=== PATIENT | male | born 1980 | race Two or more races ===

== ENCOUNTER 2018-06-13 04:01 | Emergency (ER) | payer MEDICAID ==
[~2018-06-13] VITALS: Ht 175.3 cm; Wt 170.1 kg
[~2018-06-13 04:01] MED LIST: ALBUAER3 IN; ASPI325T4 PO; CITA20TA3 PO; ERGO1CAP6 PO; HYDR-4683 PO; LOS50T PO; NIAC500T58 PO
[2018-06-13] MEDS ORDERED: ALBUTEROL SULF 2.5 MG/0.5ML(0.5%) NEB SOLN HHN STA (04:13)
[2018-06-13] MEDS ORDERED: IPRATROPIUM BROM 0.5 MG/2.5ML INH SOL NEB ONE (04:15)
[2018-06-13 05:30] VITALS: BP 162/74
== END 2018-06-13 06:14 | disposition home or self-care (01) ==
LOC: EDBD 04:01 → ER 04:12
DX: J06.9 Acute upper respiratory infection, unspecified (principal); J45.909 Unspecified asthma, uncomplicated; I10 Essential (primary) hypertension; K21.9 Gastro-esophageal reflux disease without esophagitis
CPT/HCPCS: 71045; 93005; 94640

== ENCOUNTER 2018-11-26 18:33 | Emergency (ER) | payer MEDICAID ==
[~2018-11-26] VITALS: Ht 177.8 cm; Wt 161.0 kg
[2018-11-26 19:42] VITALS: BP 124/88
[2018-11-26] MEDS ORDERED: SULFAMETHOX W/TRIMETH(800/160MG) DS TAB PO ONE (22:15)
[2018-11-26] MEDS ORDERED: cefTRIAXone SOD 1,000 MG VL IM ONE (22:15)
[2018-11-26] MEDS ORDERED: methylPREDNISolone SOD SUCC 125 MG/2 ML VL IM ONE (22:15)
== END 2018-11-27 01:17 | disposition home or self-care (01) ==
LOC: ER 18:34
DX: B02.9 Zoster without complications (principal); B35.6 Tinea cruris; J06.9 Acute upper respiratory infection, unspecified; J45.909 Unspecified asthma, uncomplicated; K21.9 Gastro-esophageal reflux disease without esophagitis; I10 Essential (primary) hypertension; Z87.891 Personal history of nicotine dependence; Z88.8 Allergy status to other drugs, medicaments and biological substances; Z79.899 Other long term (current) drug therapy
CPT/HCPCS: 96372; 99283; J0696; J2930

== ENCOUNTER 2020-03-28 10:48 | Inpatient (IN) | payer MEDICAID ==
[~2020-03-28] VITALS: Ht 177.8 cm; Wt 188.6 kg
[~2020-03-28 10:48] MED LIST changes: -HYDR-4683 PO; +HYDR-4833 PO
[2020-03-28 11:47] LABS: Basophils # (auto) 0.1 10 ^3/uL (0-0.2); Basophils % (auto) 1.4 % (0.0-2.0); Eosinophils # (auto) 0.4 10 ^3/uL (0-0.8); Eosinophils % (auto) 3.7 % (0.0-7.0); Hematocrit 42.2 % (41.0-53.0); Hemoglobin 13.9 g/dL (13.5-17.5); Mean Corpuscular Hemoglobin 29.2 pg (28.0-32.0); Mean Corpuscular Hgb Conc. 32.9 g/dL (32.0-36.0); Mean Corpuscular Volume 88.9 fL (80.0-100.0); Monocytes # (auto) 0.8 10 ^3/uL (0-1.3); Monocytes % (auto) 7.9 % (0.0-12.0); Neutrophils # (auto) 6.4 10 ^3/uL (1.6-8.6); Nucleated Red Blood Cells % 0.1 %; Platelet Count (auto) 290 10^3/uL (140-450); Red Blood Cells 4.75 10^6/uL (4.5-5.90); Red Cell Distribution Width 15.9 % (11.8-14.3); White Blood Cell 9.7 10^3/uL (4.4-10.8)
[2020-03-28 12:03] LABS: Albumin 2.9 g/dL (3.4-5.0); Calcium 8.5 mg/dL (8.5-10.1); Potassium 3.5 mmol/L (3.5-5.1)
[2020-03-28] MEDS ORDERED: SODIUM CHLORIDE 0.9% 500 ML IV ONE (12:07)
[2020-03-28 12:15] LABS: BUN/Creatinine Ratio 17.5; Bilirubin, Total 0.4 mg/dL (0.2-1.0); Total Protein 7.8 g/dL (6.4-8.2)
[2020-03-28] MEDS ORDERED: CLINDAMYCIN 900MG IV 50 ML IV ONE (12:15)
[2020-03-28] MEDS ORDERED: levoFLOXacin 500MG 100 ML IV ONE (14:00)
[2020-03-28] MEDS ORDERED: OXYCODONE W/ ACETAMINOPHEN 5/325MG TABLET PO PRN (14:00)
[2020-03-28] MEDS ORDERED: TEMAZEPAM 15 MG CAP PO PRN (14:00)
[2020-03-28] MEDS ORDERED: LACTULOSE 20Gm/30ML SOLN PO PRN (14:00)
[2020-03-28] MEDS ORDERED: HYDROcodone-ACET 5/325MG TAB PO PRN (14:00)
[2020-03-28] MEDS ORDERED: MORPHINE SULF INJ 2 MG/ML SYRINGE 1ML IV PRN (14:00)
[2020-03-28] MEDS ORDERED: ALBUTEROL SULF 2.5 MG/0.5ML(0.5%) NEB SOLN NEB PRN (14:00)
[2020-03-28] MEDS ORDERED: DEXTROSE (50%) 50ML SYRG IV PRN (14:00)
[2020-03-28] MEDS ORDERED: NITROGLYCERIN 0.4 MG SL TAB SL PRN (14:00)
[2020-03-28 14:26] VITALS: BP 139/82
[2020-03-28] MEDS: PROMETHAZINE HCL 25 MG/ML 1ML IV PRN ×2 (15:02→20:03)
[2020-03-28] MEDS: HYDROmorphone HCL 2 MG/ML VL IV PRN ×2 (15:02→20:03)
[2020-03-28 16:30] VITALS: BP 144/87
--- NOTE | 2020-03-28 16:30 | NUR ---
PT IN LOW FOWLERS, AWAKE, ALERT, ORIENTEDx4. ABLE TO VERBALIZE NEEDS. DENIES PAIN AT MOMENT. EFFORTLESS BREATHING ON ROOM AIR. WOUNDS TO BLE. BED IN LOWEST POSITION, CALL LIGHT WITHIN REACH. WILL CONTINUE TO MONITOR.
[2020-03-28 16:43] VITALS: BP 144/87
[2020-03-28] MEDS: InsuLIN REG 1unit/0.01ml Soln (100units/ml) SC SCH ×2 (17:00→21:30)
[2020-03-28] MEDS: SODIUM CHLORIDE 0.9% 1,000 ML IV SCH ×2 (17:20→23:56)
[2020-03-28] MEDS: ACCU-CHEK COMFORT CURVE STRIP VI SCH ×2 (17:21→21:30)
--- NOTE | 2020-03-28 17:34 | NUR ---
WOUND CARE NOTE: Wound care in to see patient per wound care request regarding "bilateral lower leg wounds" that are noted present on admission. Patient is 40 y/o male admitted due to Bilateral Foot Pain. Patient is resting in bed in Rm. 294B. Patient is awake, alert and oriented. He reported that he's ambulatory but his BLE hurts to walk. He's self turning and repositioning and his Umang score is 17. Patient is in no stated pain at this time. Noted patient's bilateral lower leg are edematous and erythremic with multi crusted, draining ulceration. Wounds are red, open full thickness with no measurable depth, kiran wound is bright red and edematous, minimal serosanguineous drainage noted, no odor noted. Cleansed wounds with NS, took wound culture specimen and and sent to lab for processing. Patient reported that he has had the edema "off and on for years" He added that wound started as blisters and opened up and drain. Fissured callous also noted on his plantar feet and toes. Photograph of patient's wounds are taken for reference. Cleansed patient's BLE wounds with wound cleanser, patted dry with gauze, applied Thera honey gel,covered with absorbent pad, and secured with Stockinette. Patient tolerated well and denies any other wounds. All wound stats documented at nurse intervention wound assessment part. RECOMMENDATION: Nursing to continue Daily/PRN dressing change to BLE wounds per MD order, Dietary consult for wounds,Podiatry consult, elevate edematous extremity on pillows, continue monitoring by wound care while patient is hospitalized. Addendum: 03/28/20 at 1908 by Lili Castillo RN Amended: Links added.
--- NOTE | 2020-03-28 18:51 | NUR ---
PT ASSESSED FOR PRN MED NEB TX. SPO2 98% ON RA, HR 93. PT DENIES ANY RESPIRATORY DISTRESS. NO TX INDICATED. PT IS AWARE TO HAVE RT PAGED IF TX NEEDED.
[2020-03-28] MEDS: CLINDAMYCIN 600MG IV 50 ML IV SCH (20:02)
[2020-03-28] MEDS: FAMOTIDINE 20 MG TAB PO SCH (21:30)
[2020-03-28 21:51] VITALS: BP 122/77
[2020-03-29] MEDS: PROMETHAZINE HCL 25 MG/ML 1ML IV PRN (00:51)
[2020-03-29] MEDS: HYDROmorphone HCL 2 MG/ML VL IV PRN ×4 (00:51→21:14)
[2020-03-29] MEDS: OXYCODONE W/ ACETAMINOPHEN 5/325MG TABLET PO PRN ×4 (04:15→23:20)
[2020-03-29] MEDS: CLINDAMYCIN 600MG IV 50 ML IV SCH ×3 (04:18→22:00)
[2020-03-29 05:00] VITALS: BP 124/63
[2020-03-29] MEDS: ACCU-CHEK COMFORT CURVE STRIP VI SCH ×4 (07:17→21:59)
[2020-03-29] MEDS: InsuLIN REG 1unit/0.01ml Soln (100units/ml) SC SCH ×4 (07:18→21:59)
[2020-03-29 08:51] VITALS: BP 143/72
--- NOTE | 2020-03-29 09:29 | NUR ---
PT ASSESSED FOR PRN HHN TX. PT IS ON ROOM AIR, SPO2 96%, HR 106, RR 20. NO S/S OF RESPIRATORY DISTRESS. PT AWARE TO HAVE RT PAGED IF SOB OCCURS, OR TX NEEDED. WILL CONTINUE TO MONITOR.
[2020-03-29] MEDS: FAMOTIDINE 20 MG TAB PO SCH ×2 (09:53→22:01)
[2020-03-29] MEDS: levoFLOXacin 500MG 100 ML IV SCH (09:53)
[2020-03-29] MEDS: ENOXAPARIN SOD 40 MG/0.4 ML SYRINGE SC SCH (09:53)
[2020-03-29] MEDS: SODIUM CHLORIDE 0.9% 1,000 ML IV SCH (09:54)
[2020-03-29] MEDS ORDERED: FUROSEMIDE 20 MG/2 ML VIAL IV SCH (11:00)
[2020-03-29] MEDS ORDERED: POTASSIUM CHL 10 Meq TABLET PO SCH (11:00)
--- NOTE | 2020-03-29 11:40 | NUR ---
Consult Est energy needs 5190-5024 kcal (25-30 kcal/kg IBW 74.5kg) Est protein needs 151-186g (2-2.5g/kg IBW 74.5kg d/t morbid obesity) Addendum: 03/29/20 at [address] Amended: Links added.
[2020-03-29 12:52] VITALS: BP 125/84
[2020-03-29] MEDS ORDERED: OPTISON 3ml Vial for INJ IV ONE (15:25)
[2020-03-29 17:00] VITALS: BP 139/86
--- NOTE | 2020-03-29 17:10 | NUR ---
Assessment Patient is a 40-year-old male who is alert and oriented. Prior to admission patient lived home with family and functioned independently. Patient informed me he has a walker for home use and would like to see if he can received a walker with seat. Informed patient I will inform bedside nurse. Per patient he will return to his prior living arrangements and family will transport him home. Advised patient there is a social service consult for home health wound care and walker. Informed patient clinical information will be faxed to [facility] and I will have nurse regarding walker with seat. Informed patient he has a right to participate in all discharge planning. Patient verbalized understanding and agreed to discharge plan. Informed Charge Nurse Joy patient has a walker at home and is requesting a walker with seat. Per Charge Nurse Joy she will update order. Faxed clinical information to [facility], and [facility]. Per Jessica with [facility] PH:[phone] patient has been accepted and service to start within 24-48hrs upon d/c day. [facility] will deliver walker with seat to bed side . Obtain authorization from [facility] for home health [id number] and [id number]. Addendum: 03/29/20 at 1711 by HEMANT VELASQUEZ Amended: Links added.
[2020-03-29] MEDS: FUROSEMIDE 20 MG/2 ML VIAL IV SCH (18:58)
--- NOTE | 2020-03-29 19:14 | NUR ---
Opening Shift Note Assumed care of patient. Patient is awake, alert, and oriented X 4. No S/S of respiratory distress. respirations are regular and non-labored. Patient complaints on pain in both leg 7 out 0f 10 and pain in IV site. IV will be D/C and new IV started. pain will be addressed per Dr's order. Bed in lowest position, brakes locked, call light within reach, bed rail up x 2, said rails padded. POC discussed with the patient. Patient instructed to call for assistance PRN. Will continue to monitor for changes Q1hr and PRN.
[2020-03-29 20:00] VITALS: BP 131/92
--- NOTE | 2020-03-29 21:10 | NUR ---
IV DC/insertion Patient reports pain at IV site. Tissue around insertion site is swollen and warm to touch. IV DC'd with sterile technique, catheter fully intact. Pressure dressing applied to site. Co Band wrapped around the site. Patient tolerated procedure well. New IV access obtained via clean sterile technique by inserting 22 gauge catheter at L. wrist after 2 attempts. IV secured properly. No trauma to site. IV is patent and flushing well. Patient tolerated procedure well.
[2020-03-29 22:00] VITALS: BP 131/92
[2020-03-29] MEDS: ALBUTEROL SULF HFA 90MCG INH 200DOSE IN SCH (22:00)
[2020-03-29] MEDS: POTASSIUM CHL 20 Meq TABLET PO SCH (22:01)
--- NOTE | 2020-03-30 01:35 | NUR ---
Dressing change Dressings change was done on both lower extremities. Old dressings had minimum amount of serosanguineous drainage and were stack to wounds' surfaces. Wounds cleansed with wound cleanser, patted dry. Thera honey gel applied on wounds' beds. 2 wounds on left extremity covered with Optifoam. Three wounds on right lower extremity covered with ABD pads. Secured with stockinettes. Patient tolerated procedure well.
[2020-03-30] MEDS: HYDROmorphone HCL 2 MG/ML VL IV PRN ×4 (02:18→17:41)
[2020-03-30] MEDS: CLINDAMYCIN 600MG IV 50 ML IV SCH ×3 (04:02→16:09)
[2020-03-30 05:00] VITALS: BP 134/101
[2020-03-30] MEDS: FUROSEMIDE 20 MG/2 ML VIAL IV SCH ×3 (05:53→17:44)
[2020-03-30] MEDS: ACCU-CHEK COMFORT CURVE STRIP VI SCH ×3 (06:48→17:31)
[2020-03-30] MEDS: InsuLIN REG 1unit/0.01ml Soln (100units/ml) SC SCH ×3 (06:51→17:31)
[2020-03-30 07:06] LABS: Calcium 8.2 mg/dL (8.5-10.1); Potassium 3.3 mmol/L (3.5-5.1)
[2020-03-30 08:58] VITALS: BP 131/74
[2020-03-30] MEDS ORDERED: ASPirin 325 MG TAB PO SCH (10:00)
[2020-03-30] MEDS ORDERED: CITALOPRAM HYDROBR 20 MG TAB PO SCH (10:00)
[2020-03-30] MEDS ORDERED: LOSARTAN POTASSIUM 25 MG TAB PO SCH (10:00)
[2020-03-30] MEDS: FAMOTIDINE 20 MG TAB PO SCH (10:12)
[2020-03-30] MEDS: ENOXAPARIN SOD 40 MG/0.4 ML SYRINGE SC SCH (10:14)
[2020-03-30] MEDS: POTASSIUM CHL 20 Meq TABLET PO SCH (10:14)
[2020-03-30] MEDS: OXYCODONE W/ ACETAMINOPHEN 5/325MG TABLET PO PRN ×2 (10:27→16:10)
--- NOTE | 2020-03-30 10:28 | NUR ---
MESSAGE LEFT FOR NESSA Regarding patient right leg wound positive for MRSA. Awaiting call back.
[2020-03-30] MEDS: ALBUTEROL SULF HFA 90MCG INH 200DOSE IN SCH (10:38)
[2020-03-30] MEDS: levoFLOXacin 500MG 100 ML IV SCH (11:11)
[2020-03-30] MEDS ORDERED: ARIP1TAB7 PO (11:41)
[2020-03-30] MEDS ORDERED: CHOL20009 PO (11:41)
[2020-03-30] MEDS ORDERED: HYDR2.5L TOP (11:41)
[2020-03-30] MEDS ORDERED: PERCOT PO (11:41)
[2020-03-30] MEDS ORDERED: PRA1C PO (11:41)
[2020-03-30] MEDS ORDERED: METF500S PO (11:41)
[2020-03-30] MEDS ORDERED: HYDR12.56 PO (11:41)
[2020-03-30] MEDS ORDERED: TRAZ-181 PO (11:41)
[2020-03-30 12:35] VITALS: BP 141/71
--- NOTE | 2020-03-30 13:12 | NUR ---
NESSA AT BEDSIDE updated on patient status, Per MD patient can be discharged after he receives his antibiotic scheduled for 1600. Patient verbalized understanding.
[2020-03-30] MEDS ORDERED: FURO1TAB31 PO (13:18)
[2020-03-30] MEDS ORDERED: CLIN300C8 PO (13:18)
[2020-03-30] MEDS ORDERED: PROBCAP9 PO (13:18)
--- NOTE | 2020-03-30 14:54 | NUR ---
CALLED [facility] REGARDING WALKER WITH [facility] rep stated that the order/authorization number was wrong. 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
[2020-03-30 16:24] VITALS: BP 131/77
[2020-03-30 16:44] VITALS: BP 131/77
--- NOTE | 2020-03-30 18:05 | NUR ---
WOUND CARE DONE AND PICTURES TAKEN FOR DISCHARGE WOUND CARE DONE ORDERED.
--- NOTE | 2020-03-30 19:00 | NUR ---
discharge Discharge instructions given as ordered. Encourage to follow up with PMD as instructed. All questions and concerns addressed. Patient verbalized understanding. Medication reconciliation form completed and copy given to patient. IV removed with catheter intact, pressure dressing applied Telemetry unit returned to ICU. Patient taken to vehicle via wheelchair with all personal belongings, accompanied by staff . No distress noted at time of departure.
--- NOTE | 2020-04-01 09:22 | NUR ---
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 I called [facility] and spoke with Kyra, she said code need to be [id number]. I called [facility] and spoke with Antonella, she will adjust the authorization. I called [facility] and made them aware, per Kyra walker will arrive within 2 hours-I relayed this information to nurse Kasper.
== END 2020-03-30 19:00 | disposition home health service (06) | DRG 383 ==
LOC: ER 10:48 → TELE-WESTW 15:36
PROVIDERS: ADMIT Internal Medicine; ATTEND Hospitalist
DX: L03.115 Cellulitis of right lower limb (principal); E11.42 Type 2 diabetes mellitus with diabetic polyneuropathy; E11.65 Type 2 diabetes mellitus with hyperglycemia; L03.116 Cellulitis of left lower limb; E66.01 Morbid (severe) obesity due to excess calories; J45.909 Unspecified asthma, uncomplicated; K21.9 Gastro-esophageal reflux disease without esophagitis; I10 Essential (primary) hypertension; F17.210 Nicotine dependence, cigarettes, uncomplicated; G89.4 Chronic pain syndrome; I87.8 Other specified disorders of veins; F31.9 Bipolar disorder, unspecified; Z83.3 Family history of diabetes mellitus; Z88.8 Allergy status to other drugs, medicaments and biological substances; Z81.8 Family history of other mental and behavioral disorders; Z82.49 Family history of ischemic heart disease and other diseases of the circulatory system; Z68.43 Body mass index [BMI] 50.0-59.9, adult; Z79.899 Other long term (current) drug therapy
CPT/HCPCS: 36415; 80048; 80053; 82962; 83036; 83605; 85025; 85652; 87040; 87077; 87186; 87205; 93306; 93970; 94640; 96365; G0378; J1815; J1956; J3490; Q9956

== ENCOUNTER 2022-02-28 10:54 | Emergency (ER) | payer MEDICAID ==
[~2022-02-28] VITALS: Ht 177.8 cm; Wt 172.4 kg
[~2022-02-28 10:54] MED LIST changes: +ARIP1TAB7 PO; +CHOL20009 PO; +CLIN300C8 PO; +FURO1TAB31 PO; +HYDR2.5L TOP; +METF500S PO; +NIAC-10 PO; -NIAC500T58 PO; +PERCOT PO; +PRA1C PO; +PROBCAP9 PO; +TRAZ-181 PO
[2022-02-28 11:09] VITALS: BP 168/114
[2022-02-28] MEDS ORDERED: IBUPROFEN 800 MG TAB PO ONE ×2 (11:15→11:18)
[2022-02-28] MEDS ORDERED: cefTRIAXone SOD 1,000 MG VL IM ONE (11:15)
[2022-02-28] MEDS ORDERED: cefTRIAXone SOD 1,000 MG VL ONE (11:16)
[2022-02-28] MEDS ORDERED: IBUP800T27 PO (11:25)
== END 2022-02-28 11:45 | disposition home or self-care (01) ==
LOC: ER 10:54
DX: K04.7 Periapical abscess without sinus (principal); J45.909 Unspecified asthma, uncomplicated; K21.9 Gastro-esophageal reflux disease without esophagitis; F12.10 Cannabis abuse, uncomplicated; E11.9 Type 2 diabetes mellitus without complications; F17.210 Nicotine dependence, cigarettes, uncomplicated
CPT/HCPCS: 96372; 99283; J0696

== ENCOUNTER 2023-04-12 07:02 | Inpatient (IN) | payer MEDICAID ==
[~2023-04-12] VITALS: Ht 177.8 cm; Wt 190.1 kg
[~2023-04-12 07:02] MED LIST changes: +CLIN300C70 PO; -CLIN300C8 PO; +IBUP-1456 PO; -METF500S PO; +METF500S3 PO
[2023-04-12 07:57] LABS: Basophils # (auto) 0.1 10 ^3/uL (0-0.2); Basophils % (auto) 1.3 % (0.0-2.0); Eosinophils # (auto) 0.3 10 ^3/uL (0-0.8); Eosinophils % (auto) 3.4 % (0.0-7.0); Hematocrit 40.3 % (41.0-53.0); Lymphocytes # (auto) 1.7 10 ^3/uL (0.4-5.4); Lymphocytes % (auto) 20.4 % (10.0-50.0); Mean Corpuscular Hemoglobin 28.9 pg (28.0-32.0); Mean Corpuscular Hgb Conc. 32.4 g/dL (32.0-36.0); Mean Corpuscular Volume 89.2 fL (80.0-100.0); Monocytes # (auto) 0.7 10 ^3/uL (0-1.3); Monocytes % (auto) 7.8 % (0.0-12.0); Neutrophils # (auto) 5.7 10 ^3/uL (1.6-8.6); Neutrophils % (auto) 67.1 % (37.0-80.0); Nucleated Red Blood Cells % 0.1 %; Red Blood Cells 4.52 10^6/uL (4.5-5.90); Red Cell Distribution Width 14.9 % (11.8-14.3); White Blood Cell 8.5 10^3/uL (4.4-10.8)
[2023-04-12 08:02] LABS: Albumin 2.9 g/dL (3.4-5.0); Calcium 9.2 mg/dL (8.5-10.1); Potassium 3.8 mmol/L (3.5-5.1)
[2023-04-12 08:06] LABS: BUN/Creatinine Ratio 21.9 (10.0-20.0); Bilirubin, Total 0.5 mg/dL (0.2-1.0)
[2023-04-12 08:50] LABS: Urine Bacteria NONE SEEN /hpf (None Seen); Urine Blood Negative /uL (Negative); Urine Specific Gravity 1.016 (1.001-1.035); Urine WBC 13 /hpf (0 - 3)
[2023-04-12] MEDS ORDERED: FUROSEMIDE 40 MG/4 ML VIAL IV ONE (09:00)
[2023-04-12] MEDS ORDERED: DEXTROSE (50%) 50ML SYRG IV PRN (12:45)
[2023-04-12] MEDS ORDERED: HYDROcodone-ACET 5/325MG TAB PO PRN (12:45)
[2023-04-12] MEDS ORDERED: ACETAMINOPHEN 325 MG TAB PO PRN (12:45)
[2023-04-12] MEDS: MORPHINE SULFATE INJ 2 MG/ml SYRG IV PRN ×2 (14:54→20:23)
[2023-04-12] MEDS ORDERED: IOHEXOL 350 MG/ML 100ML IJ ONE (15:41)
[2023-04-12] MEDS: ACCU-CHEK COMFORT CURVE STRIP VI SCH ×2 (17:00→22:00)
[2023-04-12] MEDS: InsuLIN REG 1unit/0.01ml Soln (100units/ml) SC SCH ×2 (17:51→22:00)
[2023-04-12] MEDS: PIPERACILLIN-TAZOB 3.375GM 100 ML IV SCH (18:22)
[2023-04-13] MEDS: MORPHINE SULFATE INJ 2 MG/ml SYRG IV PRN ×2 (01:04→05:23)
[2023-04-13 04:02] VITALS: BP 146/93
[2023-04-13 05:00] VITALS: BP 146/93
[2023-04-13] MEDS: PIPERACILLIN-TAZOB 3.375GM 100 ML IV SCH ×2 (05:21)
[2023-04-13 05:53] VITALS: BP 140/76
[2023-04-13] MEDS: ACCU-CHEK COMFORT CURVE STRIP VI SCH (06:15)
[2023-04-13] MEDS: InsuLIN REG 1unit/0.01ml Soln (100units/ml) SC SCH (06:35)
[2023-04-13] MEDS ORDERED: LOSARTAN POTASSIUM 50 MG TAB PO SCH (10:00)
[2023-04-13] MEDS ORDERED: FUROSEMIDE 40 MG TAB PO SCH (10:00)
[2023-04-13] MEDS ORDERED: ARIPIPRAZOLE 15 MG PO SCH (10:00)
[2023-04-13] MEDS ORDERED: ASPirin-EC 325mg tab PO SCH (10:00)
[2023-04-13] MEDS ORDERED: ASPirin 81 mg TAB PO SCH (10:00)
[2023-04-13] MEDS ORDERED: PANTOPRAZOLE 40 MG TAB PO SCH (10:00)
== END 2023-04-13 08:20 | disposition left against medical advice (07) | DRG 383 ==
LOC: ER 07:02 → OVERFLOW 12:34 → WEST WING 04-13 03:29
PROVIDERS: ADMIT Nurse Practitioner Family; ATTEND Nurse Practitioner Family
DX: L03.116 Cellulitis of left lower limb (principal); E44.0 Moderate protein-calorie malnutrition; L03.311 Cellulitis of abdominal wall; R56.9 Unspecified convulsions; I50.9 Heart failure, unspecified; Z68.44 Body mass index [BMI] 60.0-69.9, adult; I11.0 Hypertensive heart disease with heart failure; L03.115 Cellulitis of right lower limb; E11.9 Type 2 diabetes mellitus without complications; E78.5 Hyperlipidemia, unspecified; E66.01 Morbid (severe) obesity due to excess calories; Z53.29 Procedure and treatment not carried out because of patient's decision for other reasons; K21.9 Gastro-esophageal reflux disease without esophagitis; F41.9 Anxiety disorder, unspecified; G89.29 Other chronic pain; M54.9 Dorsalgia, unspecified; F12.90 Cannabis use, unspecified, uncomplicated; F17.210 Nicotine dependence, cigarettes, uncomplicated; J45.909 Unspecified asthma, uncomplicated; Z71.3 Dietary counseling and surveillance; Z88.8 Allergy status to other drugs, medicaments and biological substances
CPT/HCPCS: 36415; 74177; 76705; 80053; 81001; 82962; 83690; 83880; 85025; 93970; G0378; J1815; J2543

== ENCOUNTER 2023-04-20 03:36 | Emergency (ER) | payer MEDICAID ==
[~2023-04-20] VITALS: Ht 177.8 cm; Wt 190.0 kg
[2023-04-20 04:38] LABS: Basophils # (auto) 0.1 10 ^3/uL (0-0.2); Basophils % (auto) 1.3 % (0.0-2.0); Eosinophils # (auto) 0.3 10 ^3/uL (0-0.8); Eosinophils % (auto) 3.4 % (0.0-7.0); Hematocrit 38.2 % (41.0-53.0); Hemoglobin 12.6 g/dL (13.5-17.5); Lymphocytes # (auto) 1.9 10 ^3/uL (0.4-5.4); Lymphocytes % (auto) 22.2 % (10.0-50.0); Mean Corpuscular Hemoglobin 29.5 pg (28.0-32.0); Mean Corpuscular Volume 89.2 fL (80.0-100.0); Monocytes # (auto) 0.6 10 ^3/uL (0-1.3); Monocytes % (auto) 7.5 % (0.0-12.0); Neutrophils # (auto) 5.6 10 ^3/uL (1.6-8.6); Neutrophils % (auto) 65.6 % (37.0-80.0); Nucleated Red Blood Cells % 0.1 %; Red Blood Cells 4.28 10^6/uL (4.5-5.90); Red Cell Distribution Width 14.9 % (11.8-14.3); White Blood Cell 8.6 10^3/uL (4.4-10.8)
[2023-04-20 04:59] LABS: Albumin 2.8 g/dL (3.4-5.0); Calcium 8.3 mg/dL (8.5-10.1); Potassium 3.9 mmol/L (3.5-5.1)
[2023-04-20 05:03] LABS: Bilirubin, Total 0.4 mg/dL (0.2-1.0); Total Protein 7.7 g/dL (6.4-8.2)
[2023-04-20 07:57] LABS: Urine Bacteria NONE SEEN /hpf (None Seen); Urine Blood Negative /uL (Negative); Urine Mucus FEW (None Seen); Urine Specific Gravity 1.018 (1.001-1.035); Urine WBC <1 /hpf (0 - 3)
[2023-04-20] MEDS ORDERED: PIPERACILLIN-TAZOB 3.375GM 100 ML IV ONE (08:15)
[2023-04-20 08:19] VITALS: BP 151/98
[2023-04-20] MEDS ORDERED: HYDROcodone-ACET 10/325MG TAB PO ONE (08:30)
[2023-04-20] MEDS ORDERED: THIAMINE 100mg/ml INJ (200mg/2ml VIAL) IV ONE (11:45)
[2023-04-20] MEDS ORDERED: SODIUM CHLORIDE 0.9% 1,000 ML IV ONE ×2 (11:45)
[2023-04-20 11:58] LABS: Alanine Aminotransferase 41 U/L (16-61); Albumin 3.1 g/dL (3.4-5.0); Anion Gap 5 (5-15); Blood Urea Nitrogen 17 mg/dL (7-18); Calcium 8.5 mg/dL (8.5-10.1); Carbon Dioxide 25 mmol/L (21-32); Chloride 105 mmol/L (98-107); GFR African American 148 mL/min; GFR Non-African American 122 mL/min; Glucose 248 mg/dL (74-106); Potassium 4.1 mmol/L (3.5-5.1); Sodium 135 mmol/L (136-145)
[2023-04-20 12:01] LABS: Alkaline Phosphatase 92 U/L (45-117); Aspartate Aminotransferase 33 U/L (15-37); Bilirubin, Total 0.5 mg/dL (0.2-1.0); Blood Alcohol < 3.0 mg/dL (<10)
[2023-04-20 12:25] LABS: Alcohol, Urine < 3.0 mg/dL (0-10); Barbiturate Scree,Urine NEGATIVE (NEGATIVE); Benzodiazephine Screen, Urine NEGATIVE (NEGATIVE); Cocaine Screen, Urine NEGATIVE (NEGATIVE)
[2023-04-20 12:36] LABS: Amphetamine Screen, Urine NEGATIVE (NEGATIVE); Cannabinoid Screen, Urine POSITIVE (NEGATIVE); Opiate Scree,Urine NEGATIVE (NEGATIVE); Phencyclidine Screen, Urine NEGATIVE (NEGATIVE)
== END 2023-04-20 09:37 | disposition left against medical advice (07) ==
LOC: ER 03:36
DX: L03.116 Cellulitis of left lower limb (principal); L03.115 Cellulitis of right lower limb; I10 Essential (primary) hypertension; E11.9 Type 2 diabetes mellitus without complications; K21.9 Gastro-esophageal reflux disease without esophagitis; J45.909 Unspecified asthma, uncomplicated; F17.210 Nicotine dependence, cigarettes, uncomplicated; F15.90 Other stimulant use, unspecified, uncomplicated; Z88.8 Allergy status to other drugs, medicaments and biological substances; Z79.1 Long term (current) use of non-steroidal anti-inflammatories (NSAID); Z79.82 Long term (current) use of aspirin; Z79.899 Other long term (current) drug therapy
CPT/HCPCS: 36415; 71045; 80053; 80307; 80320; 81001; 83605; 83880; 84484; 85025; 87040; 93005; 96365; 99285; J2543

== ENCOUNTER 2024-08-24 08:09 | Emergency (ER) | payer MEDICAID ==
[~2024-08-24] VITALS: Ht 177.8 cm; Wt 147.8 kg
[~2024-08-24 08:09] MED LIST changes: -ARIP1TAB7 PO; +ARIP20TA4 PO; -ASPI325T4 PO; +ASPI325T6 PO; +CLIN1CAP70 PO; -CLIN300C70 PO; -HYDR2.5L TOP; +HYDR2.5L4 TOP; -PRA1C PO; +PRAZ1CAP2 PO
[2024-08-24 08:38] VITALS: BP 165/97; PULSE 110; RESP 18; TEMP 98; O2SAT 97
--- NOTE | 2024-08-24 08:38 | ED.PDOC ---
History of Present Illness(SKN HPI Comments A 44 YEAR OLD MALE PRESENTS TO THE ED WITH COMPLAINT OF RASH TO ABDOMEN AND BILATERAL LEGS. PATIENT REPORTS THAT FOR THE PAST 2-3 DAYS, A RASH HAS BEEN WORSENING TO THE UNDERFOLD OF HIS ABDOMEN WITH REDNESS, SWELLING, AND PAIN WITH PALPATION. PATIENT RELAYS THAT HE HAS BEEN DEALING WITH A SIMILAR RASH TO HIS BILATERAL LEGS WITH REDNESS AND SWELLING FOR YEARS. PATIENT STATES HE HAS HISTORY OF DM AND HAS BEEN MANAGING IT WITH INSULIN. PATIENT DENIES FEVER, CHILLS, NUMBNESS, WEAKNESS, ABDOMINAL PAIN, NAUSEA, VOMITING, HEADACHE, OR OTHER COMPLAINTS. NO OTHER SYMPTOMS OR MODIFYING FACTORS AT THIS TIME. Chief Complaint: Rash Time Seen by MD: 08:15 Primary Care Provider: SISI History of Present Illness: Nurses Notes, Medications, Allergies Allergies: Coded Allergies: Gabapentin (Verified Allergy, Unknown, 03/28/20) Pregabalin (Unverified Allergy, Unknown, 10/07/15) Home Meds Active Scripts Sulfamethoxazole W/Trimethopri (Bactrim Ds Tablet) 1 Tab Tb, 1 TAB PO BID for 10 Days, #20 TAB Prov:RUBIN CONDE 08/24/24 Cephalexin Monohydrate (Cephalexin) 500 Mg Cap, 1 CAP PO QID, #40 CAP Prov:RUBIN CONDE 08/24/24 Ketoconazole (Ketoconazole) 2 % Cre, 1 APPLIC TOP BID, #60 GRAMS Prov:RUBIN CONDE 08/24/24 Ibuprofen (Ibuprofen) 800 Mg Tab, 800 MG PO TID PRN, #30 TAB Prov:RUBIN CONDE 02/28/22 Furosemide (Lasix) 40 Mg Tab, 40 MG PO DAILY, #30 TAB Prov:TIFFANIE SIMON MD 03/30/20 Probiotic Product (PROBIOTIC COMPLEX/ACIDOPH) Acidophi Cap, 1 CAP PO DAILY, #20 CAP Prov:TIFFANIE SIMON MD 03/30/20 Clindamycin Hcl (Clindamycin Hcl) 300 Mg Cap, 3 CAP PO TID, #90 CAP Prov:TIFFANIE SIMON MD 03/30/20 Reported Medications Hydrocortisone (Topical) (Hydrocortisone) 2.5 % Lot, 1 APPLIC TOP DAILY, APPLIC 03/30/20 Prazosin Hcl (Minipres) 1 Mg Cp, 2 MG PO DAILY, CAP 03/30/20 Trazodone HCl (Trazodone Hydrochloride) 50 Mg Tab, 50 MG PO DAILY, TAB 03/30/20 Oxycodone W/ Acetaminophen (Percocet 5/325MG) 1 Tab Tb, 1 TAB PO TID, #90 TAB 03/30/20 Cholecalciferol (VITAMIN D) 2,000 Unit Tab, 2000 UNIT PO DAILY, TAB 03/30/20 Metformin HCl (Metformin Hydrochloride) 500 Mg/5 Ml Lindsay, 500 MG PO DAILY, ML 03/30/20 Aripiprazole (Abilify) 20 Mg Tab, 15 MG PO DAILY, TAB 03/30/20 Ergocalciferol (Vitamin D) 50,000 Unt Cap, 1 CAP PO QWEEKLY, #4 CAP 2 Refills 08/04/14 Albuterol Sulfate (VENTOLIN MDI) 90 Mcg Ih, 90 MCG IN 08/04/14 Aspirin (Aspirin) 325 Mg Tab, 1 TAB PO DAILY, #30 TAB 5 Refills 08/04/14 Niacin (Antihyperlipidemic) (Niaspan) 500 Mg Tab, PO, TAB 08/04/14 Citalopram Hydrobromide (CeleXA TABLET) 20 Mg Tb, PO DAILY, #30 TAB 5 Refills 08/04/14 Losartan Potassium (COZAAR TABLET) 50 Mg Tb, PO DAILY, #30 TAB 5 Refills 08/04/14 Hydrocodone-Acetaminophen ([place] 5/325MG) 1 Tab Tb, 1 TAB PO TID, #90 TAB 08/04/14 Information Source: Patient Mode of Arrival: Ambulatory Severity: Moderate Timing: Days Duration: Since onset Prehospital treatment: None Location: Abdomen, Leg (BILATERAL) Mechanism: Preceding Wound Object: None Condition of Object: None Retained Foreign Body: No Wound Type: Other (LESION) History of: Diabetes, Previous Similar Rash Associated Signs and Symptoms: Redness, Swelling, Pain Past Medical History PAST MEDICAL HISTORY: Asthma, DM, GERD, HTN, Seizures Past Medical History (Other): VENOUS STASIS DERMATITIS BOTH LOWER LEGS Surgical History: Denies all surgeries Family History Family History: Reviewed,noncontributory to illness, Family hx of DM, Family hx of heart denton Family History (Other): Bipolar disorder Social History Smoker: Cigarettes Alcohol: Occasionally Drugs: Marijuana Lives In: Home Constitutional: denies: chills, diaphoresis, fatigue, fever, malaise, sweats, weakness, others EENTM: denies: blurred vision, double vision, ear bleeding, ear discharge, ear drainage, ear pain, ear ringing, eye pain, eye redness, hearing loss, mouth pain, mouth swelling, nasal discharge, nose bleeding, nose congestion, nose pain, photophobia, tearing, throat pain, throat swelling, voice changes, others Respiratory: denies: cough, hemoptysis, orthopnea, SOB at rest, shortness of breath, SOB with excertion, stridor, wheezing, others Cardiovascular: denies: chest pain, dizzy spells, diaphoresis, Dyspnea on exertion, edema, irregular heart beat, left arm pain, lightheadedness, palpitations, PND, syncope, others Gastrointestinal: denies: abdomen distended, abdominal pain, blood streaked bowels, constipated, diarrhea, dysphagia, difficulty swallowing, hematemesis, melena, nausea, poor appetite, poor fluid intake, rectal bleeding, rectal pain, vomiting, others Genitourinary: denies: burning, dysuria, flank pain, frequency, hematuria, incontinence, penile discharge, penile sore, pain, testicle pain, testicle s welling, urgency, others Neurological: denies: dizziness, fainting, headache, left sided numbness, left sided weakness, numbness, paresthesia, pre-existing deficit, right sided numbness, right sided weakness, seizure, speech problems, tingling, tremors, weakness, others Musculoskeletal: denies: back pain, gout, joint pain, joint swelling, muscle pain, muscle stiffness, neck pain, others Integumetry: reports: lesions (TO STOMACH FOLD AND BILATERAL LOWER EXTREMITIES), rash (UNDER ABD WALL ); denies: bruises, change in color, change in hair/nails, dryness, laceration, lumps, wounds, others Allergic/Immunocompromised: denies: Difficulty Healing, Frequent Infections, Hives, Itching, others Hematologic/Lymphatic: denies: anemia, blood clots, easy bleeding, easy bruising, swollen glands, others Endocrine: denies: excessive hunger, excessive sweating, excessive thirst, excessive urination, flushing, intolerance to cold, intolerance to heat, unexplained weight gain, unexplained weight loss, others Psychiatric: denies: anxiety, bipolar disorder, depression, hopeless, panic disorder, schizophrenia, sleepless, suicidal, others All Other Systems: Reviewed and Negative Physical Exam General Appearance: No Apparent Distress, Obese HEENT: Normal ENT Inspection, PERRL/EOMI, Pharynx Normal Neck: Full Range of Motion, Non-Tender, Normal, Normal Inspection Respiratory: Chest Non-Tender, Lungs Clear, No Accessory Muscle Use, No Respiratory Distress, Normal Breath Sounds Cardiovascular: No Edema, No JVD, No Murmur, No Gallop, Normal Peripheral Pulses, Regular Rate/Rhythm Breast Exam: Deferred Gastrointestinal: No Organomegaly, Non Tender, No Pulsatile Mass, Normal Bowel Sounds, Soft Genitalia: Deferred Pelvic: Deferred Rectal: Deferred Extremities: No calf tenderness, Normal capillary refill, Normal range of motion, No pedal edema, Tender (MILD TENDERNESS WITH BROWN COLOR SKIN RASH ON BILATERAL LOWER LEGS, NO OPEN WOUND SEEN, +VENOUS STASIS DERMATITIS, NO DVT SIGNS. ) Musculoskeletal : Apperance: Normal Neurologic: Alert, growth hacker II-XII nml as Tested, No Motor Deficits, Normal Affect, Normal Mood, No Sensory Deficits Cerebellar Function: Normal Reflexes: Normal Skin: Dry, Rash (ERYTHEMA PATCH SKIN RASH UNDER LOWER ABD WALL, FOLD REGION, NO OPEN WOUND SEEN. ), Warm Peripheral Pulses: 2+ carotid (R), 2+ carotid (L), 2+ dorsalis pedis (R), 2+ Radial (R) Lymphatic: No Adenopathy Was a procedure done? Was a procedure done?: No Differential Diagnosis (INTG) Differential Diagnosis: Atopic dermatitis, Candidiasis, Cellulitis, Contact Dermatitis, Intertrigo X-Ray, Labs, Meds, VS Vital Signs Date Time Temp Pulse Resp B/P (MAP) Pulse Ox O2 Delivery O2 Flow Rate FiO2 08/24/24 08:38 98.0 110 18 165/97 (119) 97 98.0 08/24/24 08:38 110 18 97 Room Air 08/24/24 08:20 98.0 110 18 165/97 (119) 97 Time of 1ST Reevaluation: 09:00 Reevaluation 1ST: Improved Patient Education/Counseling: Diagnosis, Treatment, Need For Follow Up Family Education/Counseling: Diagnosis, Treatment, No Family Present Medical Screening: No EMC Exist At This Time Departure 1 Departure Time of Disposition: 09:00 Impression: Primary Impression: Intertrigo Additional Impression: Venous stasis dermatitis of both lower extremities Disposition: HOME / SELF CARE / HOMELESS Condition: Stable Additional Instructions: FOLLOW-UP WITH PCP IN 1 TO 2 DAYS. TAKE MEDICATIONS PRESCRIBED. RETURN TO ED FOR ANY NEW OR WORSENING SYMPTOMS. e-Prescriptions Sulfamethoxazole W/Trimethopri (Bactrim Ds Tablet) 1 Tab Tb 1 TAB PO BID for 10 Days, #20 TAB Prov: RUBIN CONDE 08/24/24 Cephalexin Monohydrate (Cephalexin) 500 Mg Cap 1 CAP PO QID, #40 CAP Prov: RUBIN CONDE 08/24/24 Ketoconazole (Ketoconazole) 2 % Cre 1 APPLIC TOP BID, #60 GRAMS Prov: RUBIN CONDE 08/24/24 Discharged With: Self Critical Care Note Critical Care Time?: No Stability Stability form required: No Heart Score Heart Score: Heart Score Response (Comments) Value History N/A 0 EKG N/A 0 Age N/A 0 Risk Factors N/A 0 Troponin N/A 0 Total 0 I personally scribed for RUBIN CONDE ([email or web address]) on 08/24/24 at 08:38. Electronically submitted by Sean Whitaker ([email or web address]). RUBIN CONDE Aug 24, 2024 08:38
[2024-08-24] MEDS ORDERED: BACDST PO (08:40)
[2024-08-24] MEDS ORDERED: CEPH500C PO (08:40)
[2024-08-24] MEDS ORDERED: KETO2CRE4 TOP (08:40)
== END 2024-08-24 08:53 | disposition home or self-care (01) ==
LOC: ER 08:09
DX: L30.4 Erythema intertrigo (principal); I87.2 Venous insufficiency (chronic) (peripheral); I10 Essential (primary) hypertension; F12.10 Cannabis abuse, uncomplicated; F17.210 Nicotine dependence, cigarettes, uncomplicated; E11.9 Type 2 diabetes mellitus without complications; J45.909 Unspecified asthma, uncomplicated; Z79.82 Long term (current) use of aspirin; Z79.84 Long term (current) use of oral hypoglycemic drugs; Z79.899 Other long term (current) drug therapy; Z88.8 Allergy status to other drugs, medicaments and biological substances
CPT/HCPCS: 82962

== ENCOUNTER 2024-08-28 14:01 | Inpatient (IN) | payer MEDICAID ==
[~2024-08-28] VITALS: Ht 177.8 cm; Wt 147.7 kg
[~2024-08-28 14:01] MED LIST changes: +BACDST PO; +CEPH500C PO; +KETO2CRE4 TOP
[2024-08-28 15:37] LABS: Basophils # (auto) 0.1 10 ^3/uL (0-0.2); Eosinophils # (auto) 0.2 10 ^3/uL (0-0.8); Eosinophils % (auto) 2.2 % (0.0-7.0); Hemoglobin 16.9 g/dL (13.5-17.5); Lymphocytes # (auto) 1.8 10 ^3/uL (0.4-5.4); Lymphocytes % (auto) 16.2 % (10.0-50.0); Mean Corpuscular Hemoglobin 30.4 pg (28.0-32.0); Mean Corpuscular Hgb Conc. 34.6 g/dL (32.0-36.0); Mean Corpuscular Volume 87.8 fL (80.0-100.0); Monocytes # (auto) 0.7 10 ^3/uL (0-1.3); Monocytes % (auto) 6.7 % (0.0-12.0); Neutrophils % (auto) 73.9 % (37.0-80.0); Nucleated Red Blood Cells % 0.1 %; Platelet Count (auto) 309 10^3/uL (140-450); Red Blood Cells 5.58 10^6/uL (4.5-5.90); Red Cell Distribution Width 13.9 % (11.8-14.3); White Blood Cell 10.8 10^3/uL (4.4-10.8)
[2024-08-28 15:55] LABS: Alanine Aminotransferase 23 U/L (7-40); Alkaline Phosphatase 108 U/L (46-116); Anion Gap 8 (5-15); Aspartate Aminotransferase 28 U/L (13-40); Blood Urea Nitrogen 13 mg/dL (9-23); Calcium 9.6 mg/dL (8.7-10.4); Carbon Dioxide 19 mmol/L (20-31); Chloride 103 mmol/L (98-107); Glucose 356 mg/dL (74-106); Potassium 4.3 mmol/L (3.5-5.1); Sodium 130 mmol/L (136-145)
[2024-08-28 15:56] LABS: Bilirubin, Total 0.6 mg/dL (0.2-1.0)
[2024-08-28 15:59] LABS: Lactic Acid w/Reflex 2.8 mmol/L (0.4-2.0)
[2024-08-28 16:29] LABS: Erythrocyte Sedimentation Rate 16 mm/hr (0-20)
--- NOTE | 2024-08-28 17:27 | ED.PDOC ---
History of Present Illness(SKN HPI Comments 44-year-old male patient with past medical history of epilepsy, diabetes mellitus, bipolar disease, hypertension, arthritis, back pain and neuropathic pain presented with complaints of abdominal wall rash associated with pain in the skin fold area for last one week. Patient was prescribed with Bactrim, Ke flex and ketoconazole cream which did not relieve his symptoms. He denied any active complaints of any viral-like illness. He has history of shingles 2 times in the past, the last time was five years ago Past medical history epilepsy, diabetes mellitus, bipolar disease, hypertension, arthritis, back pain and neuropathic pain, shingles Past surgical history Did not mention any recent surgery Social history Active smoker, consumes marijuana Occasional alcohol intake Medication history Recently started Lamictal 3 months ago, trintellix, abilify, losartan Family history Noncontributory ROS Constitutional: No: Fever, Chills, Sweats, Weakness, Malaise, Other Respiratory: No: Cough, Dry, Shortness of breath, SOB with excertion, Wheezing, Hemoptysis, Pleuritic Pain, Sputum, Wheezing, Other Cardiovascular: No: Chest Pain, Palpitations, Orthopnea, Paroxysmal Noc. Dyspnea, Edema, Lt Headedness, Other Gastrointestinal: No: Nausea, Vomiting, Abdominal Pain, Diarrhea, Constipation, Melena, Hematochezia, Other Musculoskeletal: No: other, neck pain, shoulder pain, arm pain, back pain, hand pain, leg pain, foot pain Neurological:; No: Weakness, Numbness, Incoordination, Change in speech, Confusion, Seizures Examination General Appearance: Alert, Oriented X3, Cooperative, mild distress Respiratory: Clear to auscultation, Normal air movement Cardiovascular: Regular rate, Normal S1, Normal S2 Abdominal: Soft Extremities: No cyanosis, No edema, Normal pulses, No tenderness/swelling Skin: Abdominal wall rash associated with tenderness in the skin fold with scattered lesions, bilateral leg scaling associated with scabs Neuro: Normal speech and tone Chief Complaint: Wound Check Time Seen by MD: 14:51 Primary Care Provider: SISI Allergies: Coded Allergies: Gabapentin (Verified Allergy, Unknown, 03/28/20) Pregabalin (Unverified Allergy, Unknown, 10/07/15) Home Meds Active Scripts Insulin Lispro (Human) (Humalog) 100 Unit/Ml Inj, 25 UNIT SC TID for 30 Days, #10 INJ Prov:JORGE CASTILLO [facility] 08/30/24 Insulin Glargine (Lantus) 100 Unit/Ml Inj, 65 UNIT SC DAILY for 30 Days, #10 INJ Prov:JORGE ACSTILLO [facility] 08/30/24 Loratadine (Claritin) 10 Mg Tab, 1 TAB PO DAILY for 10 Days, #10 TAB 5 Refills Prov:JORGE CASTILLO [facility] 08/30/24 Ibuprofen Micronized (Ibuprofen) 800 Mg Tab, 800 MG PO BID for 14 Days, #28 TAB Prov:JORGE CASTILLO [facility] 08/30/24 Clotrimazole (Lotrimin) 1 Applic Ap, 1 APPLIC TOP BID for 7 Days, #14 APPLIC Prov:JORGE CASTILLO [facility] 08/30/24 Amoxicillin & Pot Clavulanate (Amoxicillin/Potassium Cla) 500 Mg Tab, 1 TAB PO BID for 7 Days, #14 TAB Prov:JORGE CASTILLO [facility] 08/30/24 Furosemide (Lasix) 40 Mg Tab, 40 MG PO DAILY, #30 TAB Prov:TIFFANIE SIMON MD 03/30/20 Probiotic Product (PROBIOTIC COMPLEX/ACIDOPH) Acidophi Cap, 1 CAP PO DAILY, #20 CAP Prov:TIFFANIE SIMON MD 03/30/20 Reported Medications Vortioxetine Hydrobromide (Trintellix) 20 Mg Tab, 1 TAB PO DAILY 08/29/24 Aripiprazole (Aripiprazole) 30 Mg Tab, 1 TAB PO DAILY 08/29/24 Hydrocortisone (Topical) (Hydrocortisone) 2.5 % Lot, 1 APPLIC TOP DAILY, APPLIC 03/30/20 Prazosin Hcl (Minipres) 1 Mg Cp, 2 MG PO DAILY, CAP 03/30/20 Trazodone HCl (Trazodone Hydrochloride) 50 Mg Tab, 50 MG PO DAILY, TAB 03/30/20 Oxycodone W/ Acetaminophen (Percocet 5/325MG) 1 Tab Tb, 1 TAB PO TID, #90 TAB 03/30/20 Cholecalciferol (VITAMIN D) 2,000 Unit Tab, 2000 UNIT PO DAILY, TAB 03/30/20 Metformin HCl (Metformin Hydrochloride) 500 Mg/5 Ml Lindsay, 500 MG PO DAILY, ML 03/30/20 Ergocalciferol (Vitamin D) 50,000 Unt Cap, 1 CAP PO QWEEKLY, #4 CAP 2 Refills 08/04/14 Albuterol Sulfate (VENTOLIN MDI) 90 Mcg Ih, 90 MCG IN 08/04/14 Aspirin (Aspirin) 325 Mg Tab, 1 TAB PO DAILY, #30 TAB 5 Refills 08/04/14 Niacin (Antihyperlipidemic) (Niaspan) 500 Mg Tab, PO, TAB 08/04/14 Citalopram Hydrobromide (CeleXA TABLET) 20 Mg Tb, PO DAILY, #30 TAB 5 Refills 08/04/14 Losartan Potassium (COZAAR TABLET) 50 Mg Tb, PO DAILY, #30 TAB 5 Refills 08/04/14 Hydrocodone-Acetaminophen ([place] 5/325MG) 1 Tab Tb, 1 TAB PO TID, #90 TAB 08/04/14 Discontinued Reported Medications Aripiprazole (Abilify) 20 Mg Tab, 15 MG PO DAILY, TAB 03/30/20 Discontinued Scripts Sulfamethoxazole W/Trimethopri (Bactrim Ds Tablet) 1 Tab Tb, 1 TAB PO BID for 10 Days, #20 TAB Prov:RUBIN CONDE 08/24/24 Cephalexin Monohydrate (Cephalexin) 500 Mg Cap, 1 CAP PO QID, #40 CAP Prov:RUBIN CONDE 08/24/24 Ketoconazole (Ketoconazole) 2 % Cre, 1 APPLIC TOP BID, #60 GRAMS Prov:RUBIN CONDE 08/24/24 Ibuprofen (Ibuprofen) 800 Mg Tab, 800 MG PO TID PRN, #30 TAB Prov:RUBIN CONDE 02/28/22 Clindamycin Hcl (Clindamycin Hcl) 300 Mg Cap, 3 CAP PO TID, #90 CAP Prov:TIFFANIE SIMON MD 03/30/20 Mode of Arrival: Ambulatory Past Medical History PAST MEDICAL HISTORY: Asthma, DM, GERD, HTN, Seizures Surgical History: Denies all surgeries Family History Family History: Reviewed,noncontributory to illness, Family hx of DM, Family hx of heart denton Family History (Other): Bipolar disorder Social History Smoker: Cigarettes Alcohol: Occasionally Drugs: Marijuana Lives In: Home Physical Exam General Appearance: Other (Mentioned in the note) HEENT: Other (Mentioned in the note) Neck: Other (Mentioned in the note) Respiratory: Other (Mentioned in the note) Cardiovascular: Other (Mentioned in the note) Breast Exam: Deferred Gastrointestinal: Other (Mentioned in the note) Genitalia: Deferred Pelvic: Deferred Rectal: Deferred Extremities: Other (Mentioned in the note) Neurologic: Other (Mentioned in the note) Cerebellar Function: Other (Mentioned in the note) Reflexes: Other (Mentioned in the note) Skin: Other (Mentioned in the note) Lymphatic: Other (Mentioned in the note) Was a procedure done? Was a procedure done?: No Differential Diagnosis (INTG) Differential Diagnosis: Abscess, Cellulitis, Contact Dermatitis, Drug Reaction, Erysipelas, Gangrene, Herpes Zoster/Simplex, Impetigo, Psoriasis, Urticaria, Viral exanthema Abscess: Bacteremia X-Ray, Labs, Meds, VS Vital Signs Date Time Temp Pulse Resp B/P (MAP) Pulse Ox O2 Delivery O2 Flow Rate FiO2 08/28/24 17:46 98.9 104 19 140/95 (110) 96 98.9 08/28/24 17:46 104 19 96 Room Air 08/28/24 14:40 98.7 110 20 135/65 (88) 94 Lab Test 08/28/24 19:42 08/28/24 17:46 08/28/24 15:09 Range/Units POC Glucose 252 H 70-106 mg/dl Lactic Acid Level 2.3 *H 2.8 *H 0.4-2.0 mmol/L White Blood Count 10.8 4.4-10.8 10^3/uL Red Blood Count 5.58 4.5-5.90 10^6/uL Hemoglobin 16.9 13.5-17.5 g/dL Hematocrit 49.0 41.0-53.0 % Mean Corpuscular Volume 87.8 80.0-100.0 fL Mean Corpuscular Hemoglobin 30.4 28.0-32.0 pg Mean Corpuscular Hemoglobin Concent 34.6 32.0-36.0 g/dL Red Cell Distribution Width 13.9 11.8-14.3 % Platelet Count 309 140-450 10^3/uL Mean Platelet Volume 9.0 6.9-10.8 fL Neutrophils (%) (Auto) 73.9 37.0-80.0 % Lymphocytes (%) (Auto) 16.2 10.0-50.0 % Monocytes (%) (Auto) 6.7 0.0-12.0 % Eosinophils (%) (Auto) 2.2 0.0-7.0 % Basophils (%) (Auto) 1.0 0.0-2.0 % Neutrophils # (Auto) 8.0 1.6-8.6 10 ^3/uL Lymphocytes # (Auto) 1.8 0.4-5.4 10 ^3/uL Monocytes # (Auto) 0.7 0-1.3 10 ^3/uL Eosinophils # (Auto) 0.2 0-0.8 10 ^3/uL Basophils # (Auto) 0.1 0-0.2 10 ^3/uL Nucleated Red Blood Cells 0.1 % Erythrocyte Sedimentation Rate 16 0-20 mm/hr Sodium Level 130 L 136-145 mmol/L Potassium Level 4.3 3.5-5.1 mmol/L Chloride Level 103 98-107 mmol/L Carbon Dioxide Level 19 L 20-31 mmol/L Anion Gap 8 5-15 Blood Urea Nitrogen 13 9-23 mg/dL Creatinine 0.93 0.700-1.30 mg/dL Glomerular Filtration Rate Calc 103 >90 mL/min BUN/Creatinine Ratio 14.0 10.0-20.0 Serum Glucose 356 H 74-106 mg/dL Calcium Level 9.6 8.7-10.4 mg/dL Total Bilirubin 0.6 0.2-1.0 mg/dL Aspartate Amino Transferase (AST) 28 13-40 U/L Alanine Aminotransferase (ALT) 23 7-40 U/L Alkaline Phosphatase 108 46-116 U/L C-Reactive Protein High Sensitivity 2.90 H <1.0 mg/dL Total Protein 8.0 5.7-8.2 g/dL Albumin 4.0 3.2-4.8 g/dL Time of 1ST Reevaluation: 16:35 Reevaluation 1ST: Unchanged Patient Education/Counseling: Diagnosis, Treatment Family Education/Counseling: No Family Present Comments Patient presented with the abdominal rash associated with pain. workup was initiated. Labs revealed elevated lactic acid Patient was given: IV fluids, IV vancomycin CT abd/pelvis revealed Periportal and bilateral inguinal lymphadenopathy similar to prior. Largest lymph node in the left groin would be amenable to ultrasound- guided biopsy to exclude a lymphoproliferative process. Diffuse hepatic steatosis. Left adrenal nodule. Patient has been observed in the ED adequate length of time to insure improvement/stability. patient was admitted to the medicine team for further evaluation and treatment of their presentation. Departure 1 Departure Time of Disposition: 16:35 Impression: Primary Impression: Abdominal wall cellulitis Additional Impressions: Inguinal adenopathy Hepatic steatosis Left adrenal mass Disposition: ADMITTED INPATIENT Admit to: Tele Condition: Guarded e-Prescriptions Insulin Lispro (Human) (Humalog) 100 Unit/Ml Inj 25 UNIT SC TID for 30 Days, #10 INJ Prov: JORGE CASTILLO 08/30/24 Insulin Glargine (Lantus) 100 Unit/Ml Inj 65 UNIT SC DAILY for 30 Days, #10 INJ Prov: JORGE CASTILLO 08/30/24 Loratadine (Claritin) 10 Mg Tab 1 TAB PO DAILY for 10 Days, #10 TAB 5 Refills Prov: JORGE CASTILLO 08/30/24 Ibuprofen Micronized (Ibuprofen) 800 Mg Tab 800 MG PO BID for 14 Days, #28 TAB Prov: JORGE CASTILLO 08/30/24 Clotrimazole (Lotrimin) 1 Applic Ap 1 APPLIC TOP BID for 7 Days, #14 APPLIC Prov: JORGE CASTILLO 08/30/24 Amoxicillin & Pot Clavulanate (Amoxicillin/Potassium Cla) 500 Mg Tab 1 TAB PO BID for 7 Days, #14 TAB Prov: JORGE CASTILLO 08/30/24 Critical Care Note Critical Care Time?: No Stability Stability form required: No Heart Score Heart Score: Heart Score Response (Comments) Value History N/A 0 EKG N/A 0 Age N/A 0 Risk Factors N/A 0 Troponin N/A 0 Total 0 JER ADKINS RESIDENT Aug 28, 2024 17:27
[2024-08-28] MEDS: SODIUM CHLORIDE 0.9% 1,000 ML IV ONE (17:40)
[2024-08-28] MEDS: VANCOMYCIN 1GM/200ML PREMIX 200 ML IV ONE (17:54)
[2024-08-28] MEDS: HYDROcodone-ACET 5/325MG TAB PO ONE ×2 (17:59→19:50)
--- NOTE | 2024-08-28 18:39 | DVH ---
Exam: CT CT AB PEL WITH IV CON ONLY History: lower abd rash Comparison Study: CT CT AB PEL WITH IV CON ONLY on DOS: 04/12/23 Technique: Multidetector spiral CT of the abdomen and pelvis was performed from lung bases to pubic symphysis. Imaging was performed without IV contrast. Axial, coronal and sagittal multiplanar reform ats were obtained from the axial data set by the technologist. Radiation dose : Abdomen/Pelvis: CTDIvol 27 mGy, DLP 1781.03 mGy*cm. Findings: Evaluation of solid organs is limited due to lack of intravenous contrast use. Lung Bases: No acute or significant lung base finding. Normal heart size. No pleural or pericardial effusion. Liver: Diffuse hepatic steatosis. Gallbladder and biliary Tree: Unremarkable Spleen: Unremarkable Pancreas: The pancreas is grossly normal in appearance. Adrenal Glands: Left adrenal nodule measuring up to 13 mm. Kidneys: Kidneys are grossly normal without calculi or hydronephrosis. Bladder: Grossly unremarkable for degree of distention. Bowel: The stomach is grossly normal in appearance. Small bowel and colon are normal in caliber and d istribution. The appendix is not visualized; however, no secondary findings of acute appendicitis id entified. Ascites: Absent Lymphadenopathy: Periportal lymphadenopathy. Bilateral inguinal lymphadenopathy, largest on the left measures up to 15 mm in short axis. Abdominal wall and Mesentery: Unremarkable. Vasculature: The visualized abdominal aorta is normal in size and caliber. Evaluation of abdominal a nd pelvic vessels is limited due to lack of intravenous contrast. Pelvic Organs: Unremarkable Musculoskeletal: No aggressive focal bony lesions, acute fractures or dislocation. IMPRESSION: 1. No acute abdominal or pelvic findings. Periportal and bilateral inguinal lymphadenopathy similar t o prior. Largest lymph node in the left groin would be amenable to ultrasound-guided biopsy to exclud e a lymphoproliferative process. Diffuse hepatic steatosis. Left adrenal nodule. Radiation optimization: All CT scans at this facility use at least one of these dose optimization robert hniques: Automated exposure control mA and/or kV adjustment per patient size (includes targeted exams where dose is matched to clinical indication) or iterative reconstruction. HS:Y
[2024-08-28] MEDS ORDERED: DEXTROSE (50%) 50ML SYRG IV PRN (19:15)
[2024-08-28] MEDS: ACCU-CHEK COMFORT CURVE STRIP VI SCH (19:44)
[2024-08-28] MEDS: InsuLIN REG 1unit/0.01ml Soln (100units/ml) SC SCH (19:55)
[2024-08-28] MEDS ORDERED: ACETAMINOPHEN 325 MG TAB PO PRN (21:00)
[2024-08-28] MEDS ORDERED: NITROGLYCERIN 0.4 MG SL TAB SL PRN (21:00)
[2024-08-28] MEDS ORDERED: MORPHINE SULFATE INJ 2 MG/ml SYRG IV PRN (21:00)
--- NOTE | 2024-08-28 22:57 | DVHHPRES ---
History of Present Illness Resident Creating Document: ROXY OWENS RESIDENT Reason for Visit: abdominal rash History of Present Illness 44-year-old male patient with past medical history of chronic back pain, asthma, hypertension, morbid obesity, uncontrolled type 2 diabetes who presents to the emergency department with a chief complaint of abdominal pain due to a lower abdomen rash that has been there for the last 2 weeks progressively getting worsened recently with some streaks of blood. Patient reports being on pain management with Percocet 4 times daily for chronic back pain, on physical examination lower extremity brownish discoloration was noted associated with some pruritic lesions on different stages of healing , he denies any other complaint such as fever, nausea, vomiting, chest pain, shortness of breaths or productive cough. Past Medical History Type 2 diabetes Morbid obesity Abdominal rash Hypertension Drug abuse, marijuana use Nicotine dependency Chronic back pain Past Surgical History: None Family History: None Smoke: 1 pack per day ALCOHOL: none Lives: Other Domestic Violence: Neg Review of Systems Constitutional: Yes: Malaise Eyes: Other ENT: Other Respiratory: Wheezing Allergies: Coded Allergies: Gabapentin (Verified Allergy, Unknown, 03/28/20) Pregabalin (Unverified Allergy, Unknown, 10/07/15) Medications Current Medications Medications Dose Ordered Sig/Simone Route Start Time Stop Time Status Last Admin Dose Admin Diagnostic Test (Pha) 1 strip IQ4HR 08/28/24 20:00 08/28/24 19:44 1 STRIP Insulin Human Regular IQ4HR SC 08/28/24 20:00 08/28/24 19:55 6 UNITS Dextrose 50 ml UD PRN IV 08/28/24 19:15 Ondansetron HCl 4 mg Q4HP PRN IV 08/28/24 21:00 Acetaminophen 650 mg Q6HP PRN PO 08/28/24 21:00 Morphine Sulfate 2 mg Q4HPRN PRN IV 08/28/24 21:00 Nitroglycerin 0.4 mg Q5MINP PRN SL 08/28/24 21:00 Morphine Sulfate 2 mg Q30M PRN IV 08/28/24 21:00 Exam Vital Signs Vital Signs Date Time Temp Pulse Resp B/P (MAP) Pulse Ox O2 Delivery O2 Flow Rate FiO2 08/28/24 17:46 98.9 104 19 140/95 (110) 96 98.9 08/28/24 17:46 Room Air Exam Examination General Appearance: Morbidly obese, Alert, Oriented X3, Cooperative, No acute distress Respiratory: Wheezing on auscultation mainly in the left side Cardiovascular: Regular rate, Normal S1, Normal S2 Abdominal: Normal bowel sounds Extremities: No cyanosis, No edema, Normal pulses, No tenderness/swelling Skin: Cellulitis in the lower abdomen, Pruritic lesions and different stages of healing in the lower extremities Neuro: Normal gait, Normal speech, Strength at 5/5 X4 ext, Normal tone, Sensation intact, Cranial nerves 3-12 NL, Reflexes 2+ Psych/Mental Status: Mental status NL, Mood NL Labs/Xrays Labs Test 08/28/24 19:42 08/28/24 17:46 08/28/24 15:09 Range/Units POC Glucose 252 H 70-106 mg/dl Lactic Acid Level 2.3 *H 0.4-2.0 mmol/L White Blood Count 10.8 4.4-10.8 10^3/uL Red Blood Count 5.58 4.5-5.90 10^6/uL Hemoglobin 16.9 13.5-17.5 g/dL Hematocrit 49.0 41.0-53.0 % Mean Corpuscular Volume 87.8 80.0-100.0 fL Mean Corpuscular Hemoglobin 30.4 28.0-32.0 pg Mean Corpuscular Hemoglobin Concent 34.6 32.0-36.0 g/dL Red Cell Distribution Width 13.9 11.8-14.3 % Platelet Count 309 140-450 10^3/uL Mean Platelet Volume 9.0 6.9-10.8 fL Neutrophils (%) (Auto) 73.9 37.0-80.0 % Lymphocytes (%) (Auto) 16.2 10.0-50.0 % Monocytes (%) (Auto) 6.7 0.0-12.0 % Eosinophils (%) (Auto) 2.2 0.0-7.0 % Basophils (%) (Auto) 1.0 0.0-2.0 % Neutrophils # (Auto) 8.0 1.6-8.6 10 ^3/uL Lymphocytes # (Auto) 1.8 0.4-5.4 10 ^3/uL Monocytes # (Auto) 0.7 0-1.3 10 ^3/uL Eosinophils # (Auto) 0.2 0-0.8 10 ^3/uL Basophils # (Auto) 0.1 0-0.2 10 ^3/uL Nucleated Red Blood Cells 0.1 % Erythrocyte Sedimentation Rate 16 0-20 mm/hr Sodium Level 130 L 136-145 mmol/L Potassium Level 4.3 3.5-5.1 mmol/L Chloride Level 103 98-107 mmol/L Carbon Dioxide Level 19 L 20-31 mmol/L Anion Gap 8 5-15 Blood Urea Nitrogen 13 9-23 mg/dL Creatinine 0.93 0.700-1.30 mg/dL Glomerular Filtration Rate Calc 103 >90 mL/min BUN/Creatinine Ratio 14.0 10.0-20.0 Serum Glucose 356 H 74-106 mg/dL Calcium Level 9.6 8.7-10.4 mg/dL Total Bilirubin 0.6 0.2-1.0 mg/dL Aspartate Amino Transferase (AST) 28 13-40 U/L Alanine Aminotransferase (ALT) 23 7-40 U/L Alkaline Phosphatase 108 46-116 U/L C-Reactive Protein High Sensitivity 2.90 H <1.0 mg/dL Total Protein 8.0 5.7-8.2 g/dL Albumin 4.0 3.2-4.8 g/dL Assessment/Plan Assessment/Plan Abdominal pain likely due to Cellulitis in the lower abdomen -vancomycin IV -Zosyn IV -wound culture -wound care consult Chronic back pain -morphine p.r.n. - resume home meds Sinus tachycardia -treat underlying condition, possibly related with recent infection and severe back pain Uncontrolled type 2 diabetes -sliding scale insulin protocol -Hemoglobin A1c morbid obesity Lifestyle modification counseling, encouraging improvement in his dietary habits and physical activity Case discussed with Dr. Laird Goals of care discussed with the patient for 39 minutes Code status: Full code Plan discussed with: Patient My Orders Orders - ROXY OWENS RESIDENT Procedure Category Date Status Time Admit ADMIT 08/28/24 Transmitted 20:58 Allergies SELWYN 08/28/24 In Process 20:58 Code Status CODE 08/28/24 Transmitted 20:58 Ondansetron Hcl PHA 08/28/24 In Process (Zofran) 21:00 Complete Blood Count LAB 08/29/24 Verified 04:00 Comprehensive LAB 08/29/24 Verified Metabolic Panel 04:00 Acetaminophen Tablet PHA 11/18/24 In Process (Tylenol Tablet) 21:00 Morphine Sulfate PHA 08/28/24 In Process Injection 21:00 Nitroglycerin PHA 08/28/24 In Process Sublingual (Ntrostat 21:00 Morphine Sulfate PHA 08/28/24 In Process Injection 21:00 Oxygen By Nasal RT 08/28/24 Transmitted Cannula 20:58 Stat Ekg For Chest SELWYN 08/28/24 In Process Pain 20:58 Notify Md Of Changes SELWYN 08/28/24 In Process From Base 20:58 Insulation Engineman For [facility] 08/28/24 In Process 24 Hours 20:58 Rhythm Strips Once [facility] 08/28/24 In Process Every Shift 20:58 Emergency Dysrhythmia [facility] 08/28/24 In Process Protocol 20:58 Date of Service: Aug 28, 2024 Billing Provider: ELIZABETH LAIRD MD Common Visit Codes: [id number] INP/OBS CARE (HIGH) ROXY OWENS RESIDENT Aug 28, 2024 22:57 ELIZABETH LAIRD MD Aug 29, 2024 10:28
[2024-08-29] MEDS ORDERED: PIPERACILLIN-TAZOB 3.375GM 100 ML IV SCH
[2024-08-29] MEDS: MORPHINE SULFATE INJ 2 MG/ml SYRG IV ONE (00:50)
[2024-08-29] MEDS: PIPERACILLIN-TAZOB 3.375GM 100 ML IV SCH (01:49)
[2024-08-29] MEDS: SODIUM CHLORIDE 0.9% 1,000 ML IV ONE (01:49)
[2024-08-29] MEDS: MORPHINE SULFATE INJ 2 MG/ml SYRG IV PRN ×2 (02:00→18:31)
[2024-08-29 03:43] LABS: Basophils # (auto) 0.1 10 ^3/uL (0-0.2); Basophils % (auto) 1.1 % (0.0-2.0); Eosinophils # (auto) 0.3 10 ^3/uL (0-0.8); Eosinophils % (auto) 3.5 % (0.0-7.0); Hematocrit 47.3 % (41.0-53.0); Hemoglobin 16.3 g/dL (13.5-17.5); Lymphocytes # (auto) 2.2 10 ^3/uL (0.4-5.4); Lymphocytes % (auto) 24.6 % (10.0-50.0); Mean Corpuscular Hemoglobin 30.3 pg (28.0-32.0); Mean Corpuscular Hgb Conc. 34.5 g/dL (32.0-36.0); Mean Corpuscular Volume 87.9 fL (80.0-100.0); Monocytes # (auto) 0.8 10 ^3/uL (0-1.3); Monocytes % (auto) 9.3 % (0.0-12.0); Neutrophils # (auto) 5.6 10 ^3/uL (1.6-8.6); Neutrophils % (auto) 61.5 % (37.0-80.0); Platelet Count (auto) 300 10^3/uL (140-450); Red Blood Cells 5.38 10^6/uL (4.5-5.90); Red Cell Distribution Width 14.3 % (11.8-14.3); White Blood Cell 9.1 10^3/uL (4.4-10.8)
[2024-08-29 03:51] VITALS: RESP 20; O2SAT 94
[2024-08-29 04:05] LABS: Alanine Aminotransferase 27 U/L (7-40); Albumin 4.1 g/dL (3.2-4.8); Alkaline Phosphatase 97 U/L (46-116); Anion Gap 6 (5-15); Aspartate Aminotransferase 21 U/L (13-40); BUN/Creatinine Ratio 21.6 (10.0-20.0); Bilirubin, Total 0.8 mg/dL (0.2-1.0); Blood Urea Nitrogen 16 mg/dL (9-23); Calcium 9.5 mg/dL (8.7-10.4); Carbon Dioxide 22 mmol/L (20-31); Chloride 106 mmol/L (98-107); Potassium 4.2 mmol/L (3.5-5.1); Sodium 134 mmol/L (136-145)
[2024-08-29 04:06] LABS: Total Protein 7.7 g/dL (5.7-8.2)
[2024-08-29 04:23] LABS: Glucose 240 mg/dL (74-106)
[2024-08-29 07:16] LABS: Magnesium 2.1 mg/dL (1.6-2.6)
[2024-08-29 07:17] LABS: Phosphorus 3.3 mg/dL (2.4-5.1)
[2024-08-29 07:28] VITALS: RESP 17
[2024-08-29 07:28] LABS: INR 1.03 (0.9-1.15); Partial Thromboplastin Time 30.9 SEC (24.5-34.5); Prothrombin Time 10.9 sec (9.3-11.8)
[2024-08-29 07:43] LABS: Urine Bacteria None Seen /hpf (None Seen)
[2024-08-29 08:30] LABS: Urine Amorphous Crystal FEW /hpf (None Seen); Urine Blood Negative /uL (Negative); Urine Clarity Turbid (Clear); Urine Color Yellow (Yellow); Urine Mucus FEW (None Seen); Urine Protein, UAD 1+ (Negative); Urine Specific Gravity 1.047 (1.001-1.035); Urine Urobilinogen Normal (Negative); Urine WBC 4 /hpf (0 - 3)
[2024-08-29 08:38] LABS: Amphetamine Screen, Urine Neg (NEGATIVE); Barbiturate Scree,Urine Neg (NEGATIVE); Benzodiazephine Screen, Urine Neg (NEGATIVE); Cannabinoid Screen, Urine Pos (NEGATIVE); Cocaine Screen, Urine Neg (NEGATIVE); Opiate Scree,Urine Pos (NEGATIVE); Phencyclidine Screen, Urine Neg (NEGATIVE)
[2024-08-29] MEDS ORDERED: VANCOMYCIN PER PHARMACY 0 MG IV SCH (09:45)
[2024-08-29] MEDS: INSULIN LANTUS (GLARGINE) 1 /0.01ml (100units/ml) SC SCH (10:00)
[2024-08-29] MEDS: NYSTATIN TOPICAL POWDER 15GM TOP SCH (11:34)
[2024-08-29] MEDS: NICOTINE 21MG/24 HR TOPICAL PATCH TD SCH (11:35)
[2024-08-29] MEDS: ONDANSETRON HCL 4 MG/2 ML VIAL IV PRN (11:36)
[2024-08-29 11:56] LABS: Free T3 2.86 pg/mL (2.3-4.2)
[2024-08-29] MEDS ORDERED: VANCOMYCIN 1.25GM/250ML 250 ML IV SCH (12:00)
[2024-08-29] MEDS: MUPIROCIN 2% OINT 15gm or 22gm TOP ONE (14:30)
--- NOTE | 2024-08-29 15:46 | DVHPNRES ---
Progress Note Date Seen: Aug 29, 2024 Resident Creating Document: ZEKE DE LEON RESIDENT Medical Necessity Reason Pt with a Central, PICC or Fol: No Subjective Review of Systems Pb Espinosa is a 44 years old male with a PMH of chronic back pain, asthma, hypertension, morbid obesity, type 2 DM presented to the ED with the chief complaints of lower abdominal rash and wound for more than a week prior to admission. Patient reported that his rash progressively getting worsened recently with some streaks of blood which prompted him to visit ED. on my assessment patient denies recent trauma, sick contacts recent travel, hiking, any allergic irritant contact, fever, nausea, vomiting and other associated symptoms. PMH : chronic back pain, asthma, hypertension, morbid obesity, type 2 DM, Fibromyalgia PSH: Denies Family history: Reviewed, noncontributory Social history: Lives with family. Smokes 1 pack per day. But denies alcohol and other drug abuse Home meds: Percocet for chronic back pain, Humalog Patient seen and examined at the bedside. Patient reported improvement in his symptoms since admission. Patient is alert and able to answer all questions. No new complaints reported except mild itching. We discontinued Zosyn and vancomycin and we started clotrimazole cream, mupirocin cream and amoxicillin low oral antibiotic as he will be benefit from this. Ordered wound consult and wound culture. currently giving Lantus 65 units and insulin lispro 25 units t.i.d., monitor blood glucose continuously. Patient reports: Feels better Objective vital signs Vital Sign Date Time Temp Pulse Resp B/P (MAP) Pulse Ox O2 Delivery O2 Flow Rate FiO2 08/29/24 12:30 97.9 92 17 130/84 (99) 96 97.9 08/29/24 07:28 Room Air* 0 21 medications Current Medications Medications Dose Ordered Sig/Simone Route Start Time Stop Time Status Last Admin Dose Admin Diagnostic Test (Pha) 1 strip IQ4HR 08/28/24 20:00 08/29/24 12:00 1 STRIP Insulin Human Regular IQ4HR SC 08/28/24 20:00 08/29/24 12:24 4 UNITS Dextrose 50 ml UD PRN IV 08/28/24 19:15 Ondansetron HCl 4 mg Q4HP PRN IV 08/28/24 21:00 Acetaminophen 650 mg Q6HP PRN PO 08/28/24 21:00 Piperacillin Sod/ Tazobactam Sod 100 ml @ 25 mls/hr Q6HR IV 08/29/24 00:00 UNV Nicotine 1 patch DAILY TD 08/29/24 10:00 08/29/24 11:35 1 PATCH Insulin Glargine 65 units QAM SC 08/30/24 07:00 Insulin Human Lispro 25 units TIDAC SC 08/29/24 17:00 Future Hold Oxycodone/ Acetaminophen 2 tab Q6HP PRN PO 08/29/24 13:45 Clotrimazole 1 applic Q12HR TOP 08/29/24 22:00 Mupirocin 1 applic BID TOP 08/29/24 22:00 Amoxicillin/ Clavulanate Potassium 500 mg Q8HR PO 08/29/24 22:00 Examination General Appearance: Alert, Oriented X3, Cooperative, mild distress HEENT: Atraumatic, Mucous membranes moist/pink Respiratory: Clear to auscultation, Normal air movement, No added sounds Cardiovascular: Regular rate, Normal S1, Normal S2, No murmurs Abdominal: Active bowel sounds, Soft, no distention, no tenderness Extremities: No edema, Normal pulses, No tenderness/swelling Skin: crusted lesions without pus, clearly demarcated, erythematous, tender warmth lesion and macerated skin in below the umbilicus Neuro: Normal speech, sensorimotor deficits none Psych/Mental Status: Mental status NL, Mood NL Nurse was there as sharperone during examination laboratory and microbiology Laboratory Tests 08/29/24 03:23 Test 08/29/24 03:23 Range/Units Serum Glucose 240 #H 74-106 mg/dL Labs and/or images reviewed: Labs reviewed by me, Image(s) reviewed by me Problem List/Assessment/Plan Problem List/Assessment/Plan # erysipelas # possible tinea with a super imposed bacterial infection # rule out sepsis # ruled out cellulitis - monitor lab - initially given Zosyn and vancomycin were discontinued - currently on clotrimazole cream, mupirocin cream and amoxicillin low oral antibiotic as he will be benefit from this. - Ordered wound consult and wound culture. - blood, respiratory, urine cultures ordered, pending # metabolic syndrome # uncontrolled type 2 DM - continuously monitor and patient is on mild ISS - currently giving Lantus 65 units and insulin lispro 25 units t.i.d. - adjust dose as required # uncontrolled hypertension - continuously monitored - resume home meds # morbid obesity with a BMI 46.7 - counseled regarding lifestyle modification including diet and exercise # chronic back pain # fibromyalgia - resumed home meds including Percocet # ? DANIEL - CPAP at night as needed Scds for now no GI PPX cardiac diet for now Reconciled home meds Goals of care discussed with patient for more than 27 minutes: Full code status Case management discussed with Dr. Dawson, patient and nurse Plan discussed with: Patient My Orders My Orders Orders - ZEKE DE LEON RESIDENT Procedure Category Date Status Time Insulin Lantus PHA 08/30/24 In Process (Glargine) (Lantus) 07:00 Insulin Lispro PHA 08/29/24 In Process (Human) (Humalog) 17:00 Oxycodone W/ Acet PHA 08/29/24 In Process 5/325mg Tab (Percocet 13:45 Clotrimazole 1% PHA 08/29/24 In Process Topical Cream 22:00 Mupirocin 2% Ointment PHA 08/29/24 In Process (Bactroban 2% Oint 22:00 Amoxicillin/Clavulanate PHA 08/29/24 In Process Tablet (Augmenti 22:00 Date of Service: Aug 29, 2024 Billing Provider: JOSTIN DAWSON MD Common Visit Codes: [id number] INP/OBS CARE(HIGH) Coding Comment Comment Attending Attestation I saw and evaluated the patient. I reviewed the residents note and agree with findings and plan as documented in the residents note except as documented below. 44-year-old male admitted for skin infection, also found have hypoglycemia Assessment and plan Erysipelas No evidence of cellulitis Sepsis ruled out Metabolic syndrome Morbid obesity Uncontrolled type 2 diabetes insulin-dependent Chronic pain Hypertension Discontinue IV antibiotics Topical mupirocin and clotrimazole, oral Augmentin Basal bolus insulin Resume home meds Cures checked, resume chronic pain medication, Percocet 10 q.i.d. High stopping score, CPAP at night Discharge patient with pulmonary follow up for sleep apnea rest as per resident note ZEKE DE LEON RESIDENT Aug 29, 2024 15:46 JOSTIN DAWSON MD Aug 29, 2024 18:06
[2024-08-29] MEDS: OXYCODONE W/ ACETAMINOPHEN 5/325MG TABLET PO PRN (15:53)
[2024-08-29] MEDS: AMOXICILLIN/CLAVULAN 500 MG TAB PO ONE (16:01)
[2024-08-29] MEDS: CLOTRIMAZOLE 1 % CREAM 15GM TOP ONE (16:01)
[2024-08-29 16:53] LABS: Free T4 (Free Thyroxine) 1.03 ng/dL (0.89-1.76)
[2024-08-29] MEDS ORDERED: INSULIN LISPRO (HUMAN) 100 UNITS/ML ML SC SCH (17:00)
[2024-08-29] MEDS ORDERED: VORT1TAB3 PO (20:39)
[2024-08-29] MEDS ORDERED: ARIP1TAB63 PO (20:39)
[2024-08-29] MEDS: AMOXICILLIN/CLAVULAN 500 MG TAB PO SCH (21:50)
[2024-08-29] MEDS: MUPIROCIN 2% OINT 15gm or 22gm TOP SCH (21:51)
[2024-08-29] MEDS: CLOTRIMAZOLE 1 % CREAM 15GM TOP SCH (21:55)
[2024-08-30] MEDS: INSULIN LANTUS (GLARGINE) 1 /0.01ml (100units/ml) SC SCH (07:00)
[2024-08-30 08:00] VITALS: PULSE 84; RESP 17; O2SAT 96
[2024-08-30 08:22] LABS: Basophils # (auto) 0.1 10 ^3/uL (0-0.2); Basophils % (auto) 1.2 % (0.0-2.0); Eosinophils # (auto) 0.4 10 ^3/uL (0-0.8); Eosinophils % (auto) 4.3 % (0.0-7.0); Hematocrit 47.6 % (41.0-53.0); Hemoglobin 15.8 g/dL (13.5-17.5); Lymphocytes % (auto) 23.4 % (10.0-50.0); Mean Corpuscular Hemoglobin 29.8 pg (28.0-32.0); Mean Corpuscular Hgb Conc. 33.2 g/dL (32.0-36.0); Mean Corpuscular Volume 89.5 fL (80.0-100.0); Monocytes # (auto) 0.7 10 ^3/uL (0-1.3); Monocytes % (auto) 8.9 % (0.0-12.0); Neutrophils # (auto) 5.2 10 ^3/uL (1.6-8.6); Neutrophils % (auto) 62.2 % (37.0-80.0); Nucleated Red Blood Cells % 0.1 %; Platelet Count (auto) 275 10^3/uL (140-450); Red Blood Cells 5.32 10^6/uL (4.5-5.90); White Blood Cell 8.4 10^3/uL (4.4-10.8)
[2024-08-30 08:31] LABS: Calcium 9.9 mg/dL (8.7-10.4); Chloride 107 mmol/L (98-107); Potassium 3.7 mmol/L (3.5-5.1); Sodium 137 mmol/L (136-145)
[2024-08-30 08:32] LABS: Anion Gap 8 (5-15); Carbon Dioxide 22 mmol/L (20-31)
[2024-08-30 08:37] LABS: BUN/Creatinine Ratio 23.5 (10.0-20.0); Blood Urea Nitrogen 16 mg/dL (9-23); Glucose 179 mg/dL (74-106)
[2024-08-30 09:08] VITALS: BP 119/78; PULSE 84; RESP 17; TEMP 98.7; O2SAT 96
[2024-08-30] MEDS: LORATADINE 10 MG TAB PO ONE (12:09)
[2024-08-30 14:02] VITALS: BP 137/78; PULSE 84; RESP 18; TEMP 98.6; O2SAT 95
[2024-08-30] MEDS ORDERED: INSLANTI SC (15:31)
[2024-08-30] MEDS ORDERED: CLOT1CRE56 TOP (15:31)
[2024-08-30] MEDS ORDERED: IBUP-1455 PO (15:31)
[2024-08-30] MEDS ORDERED: LORA-622 PO (15:31)
[2024-08-30] MEDS ORDERED: INSLISPI SC (15:31)
[2024-08-30] MEDS ORDERED: AMOX500T92 PO (15:31)
--- NOTE | 2024-08-30 16:24 | DVHDSRES ---
Discharge Summary Date of Admission Resident Creating Document: ZEKE DE LEON RESIDENT Aug 28, 2024 at 20:58 Date of Discharge: Aug 30, 2024 Admitting Diagnosis Painful abdominal rash Labs/Diagnostic Data: Laboratory Results Test 08/30/24 12:13 08/30/24 08:13 08/29/24 07:38 08/29/24 07:02 POC Glucose 169 mg/dl (70-106) White Blood Count 8.4 10^3/uL (4.4-10.8) Red Blood Count 5.32 10^6/uL (4.5-5.90) Hemoglobin 15.8 g/dL (13.5-17.5) Hematocrit 47.6 % (41.0-53.0) Mean Corpuscular Volume 89.5 fL (80.0-100.0) Mean Corpuscular Hemoglobin 29.8 pg (28.0-32.0) Mean Corpuscular Hemoglobin Concent 33.2 g/dL (32.0-36.0) Red Cell Distribution Width 14.0 % (11.8-14.3) Platelet Count 275 10^3/uL (140-450) Mean Platelet Volume 8.5 fL (6.9-10.8) Neutrophils (%) (Auto) 62.2 % (37.0-80.0) Lymphocytes (%) (Auto) 23.4 % (10.0-50.0) Monocytes (%) (Auto) 8.9 % (0.0-12.0) Eosinophils (%) (Auto) 4.3 % (0.0-7.0) Basophils (%) (Auto) 1.2 % (0.0-2.0) Neutrophils # (Auto) 5.2 10 ^3/uL (1.6-8.6) Lymphocytes # (Auto) 2.0 10 ^3/uL (0.4-5.4) Monocytes # (Auto) 0.7 10 ^3/uL (0-1.3) Eosinophils # (Auto) 0.4 10 ^3/uL (0-0.8) Basophils # (Auto) 0.1 10 ^3/uL (0-0.2) Nucleated Red Blood Cells 0.1 % Sodium Level 137 mmol/L (136-145) Potassium Level 3.7 mmol/L (3.5-5.1) Chloride Level 107 mmol/L (98-107) Carbon Dioxide Level 22 mmol/L (20-31) Anion Gap 8 (5-15) Blood Urea Nitrogen 16 mg/dL (9-23) Creatinine 0.68 mg/dL (0.700-1.30) Glomerular Filtration Rate Calc 117 mL/min (>90) BUN/Creatinine Ratio 23.5 (10.0-20.0) Serum Glucose 179 mg/dL (74-106) Calcium Level 9.9 mg/dL (8.7-10.4) Lactic Acid Level 1.8 mmol/L (0.4-2.0) Urine Color Yellow (Yellow) Urine Clarity Turbid (Clear) Urine pH 6.0 (5.0-9.0) Urine Specific [place] 1.047 (1.001-1.035) Urine Protein 1+ (Negative) Urine Ketones Negative (Negative) Urine Blood Negative /uL (Negative) Urine Nitrite Negative (Negative) Urine Bilirubin Negative (Negative) Urine Urobilinogen Normal mg/dL (Negative) Urine Leukocyte Esterase Negative /uL (Negative) Urine RBC 1 /hpf (0 - 3) Urine WBC 4 /hpf (0 - 3) Urine Squamous Epithelial Cells Few /hpf (<5) Urine Amorphous Crystals Few /hpf (None Seen) Urine Bacteria None seen /hpf (None Seen) Urine Mucus Few (None Seen) Urine Glucose 3+ mg/dL (Normal) Urine Opiates Screen Pos (NEGATIVE) Urine Fentanyl Screen Neg (NEGATIVE) Urine Barbiturates Screen Neg (NEGATIVE) Urine Phencyclidine Screen Neg (NEGATIVE) Urine Amphetamines Screen Neg (NEGATIVE) Urine Benzodiazepines Screen Neg (NEGATIVE) Urine Cocaine Screen Neg (NEGATIVE) Urine Cannabinoids Screen Pos (NEGATIVE) Test 08/29/24 03:23 08/28/24 15:09 Prothrombin Time 10.9 sec (9.3-11.8) Prothrombin Time INR 1.03 (0.9-1.15) Activated Partial Thromboplast Time 30.9 SEC (24.5-34.5) Hemoglobin A1c 12.8 % A1C (<5.7) Phosphorus Level 3.3 mg/dL (2.4-5.1) Magnesium Level 2.1 mg/dL (1.6-2.6) Total Bilirubin 0.8 mg/dL (0.2-1.0) Aspartate Amino Transferase (AST) 21 U/L (13-40) Alanine Aminotransferase (ALT) 27 U/L (7-40) Alkaline Phosphatase 97 U/L (46-116) Total Protein 7.7 g/dL (5.7-8.2) Albumin 4.1 g/dL (3.2-4.8) Vitamin B12 Level 643 pg/mL (211-911) Vitamin D 25-Hydroxy 15.6 ng/mL (30.0-100) Thyroid Stimulating Hormone (TSH) 0.75 uIU/mL (0.55-4.78) Free Thyroxine (T4) Calculated 1.03 ng/dL (0.89-1.76) Free Triiodothyronine (T3) pg/mL 2.86 pg/mL (2.3-4.2) Erythrocyte Sedimentation Rate 16 mm/hr (0-20) C-Reactive Protein High Sensitivity 2.90 mg/dL (<1.0) Other Laboratory Tests 08/30/24 08:13 Brief Hx & Hospital Course: Pb Espinosa is a 44 years old male with a PMH of chronic back pain, asthma, hypertension, morbid obesity, type 2 DM presented to the ED with the chief complaints of lower abdominal rash and wound for more than a week prior to admission. Patient reported that his rash progressively getting worsened recently with some streaks of blood which prompted him to visit ED. on my assessment patient denies recent trauma, sick contacts recent travel, hiking, any allergic irritant contact, fever, nausea, vomiting and other associated symptoms. Patient required hospital admission for further evaluation and management of rash Likely suggestive of Aricept police and tinea with superimposed bacterial infection. Initially given Zosyn and vancomycin later switched to oral amoxicillin, mupirocin ointment, clotrimazole topical. CT abdominal pelvis showed no acute abnormalities. Due to uncontrolled type 2 diabetes mellitus patient is on Lantus 65 units and insulin lispro 25 units t.i.d., continuously monitored. Patient condition was improved, stable and in condition to be discharged home with optimal treatment. Patient was advised if rash is worsening to visit ED, patient agreed to the discharge plan. Patient was advised about Wound hygiene, keep it dry and explained about healthy lifestyle habits including diet and exercise and to follow up with PCP. General Appearance: Alert, Oriented X3, Cooperative, mild distress HEENT: Atraumatic, Mucous membranes moist/pink Respiratory: Clear to auscultation, Normal air movement, No added sounds Cardiovascular: Regular rate, Normal S1, Normal S2, No murmurs Abdominal: Active bowel sounds, Soft, no distention, no tenderness Extremities: No edema, Normal pulses, No tenderness/swelling Skin: crusted lesions without pus, clearly demarcated, erythematous, tender warmth lesion and macerated skin in below the umbilicus Neuro: Normal speech, sensorimotor deficits none Psych/Mental Status: Mental status NL, Mood NL Nurse was there as sharperone during examination, Operations or Procedures CT AB PEL WITH IV CON ONLY IMPRESSION: 1. No acute abdominal or pelvic findings. Periportal and bilateral inguinal lymphadenopathy similar to prior. Largest lymph node in the left groin would be amenable to ultrasound-guided biopsy to exclude a lymphoproliferative process. Diffuse hepatic steatosis. Left adrenal nodule. Condition at Discharge: Stable Final Diagnosis/Problems List # Erysipelas # ? tinea with a super imposed bacterial infection # ruled out sepsis # ruled out cellulitis # metabolic syndrome # uncontrolled type 2 DM # uncontrolled hypertension # morbid obesity with a BMI 46.7 # chronic back pain # fibromyalgia # ? DANIEL # hepatic steatosis Discharge Disposition: Home Discharge Instruct/Medications Diet: Consistent carbohydrate, Cardiac 2g Na,low cholest Diet comment: AND CARDIAC DIET LOW SALT AND LOW CHOLESTEROL Activity: No Restrictions, As Tolerated Follow Up/Referral: PCP Medications: Per EMR Discharge Statement: "Patient was advised to return to the ER or call 911 if any headaches, dizziness, shortness of breath, chest pain, abdominal pain, bleeding, fevers, or worsening of medical condition. Patient was counseled about treatment plan, medications, possible side effects, patientverbalized understanding. All questions were answered to the best of my ability. This discharge took greater then 30 minutes in planning, reviewing documentation, counseling the patient, and discussing with other team members." ASSESSMENT ASSESSMENT Assessment # erysipelas # possible tinea with a super imposed bacterial infection # rule out sepsis # ruled out cellulitis Date of Service: Aug 30, 2024 Billing Provider: JOSTIN MCCORMACK MD Common Visit Codes: [id number] DISCH DAY >30min Coding Comment Comment Attending Attestation I saw and evaluated the patient. I reviewed the residents note and agree with findings and plan as documented in the residents note except as documented below. lymphadenopathy on CT to be followed as outpatient. HALEY,KHAJA RESIDENT Aug 30, 2024 16:24 JOSTIN MCCORMACK MD Aug 30, 2024 20:50
[2024-08-31 09:03] LABS: Hepatitis B Surface Antigen Negative (Negative)
[2024-08-31 09:24] LABS: Hepatitis C Antibody Negative (Negative)
== END 2024-08-30 14:27 | disposition home or self-care (01) | DRG 383 ==
LOC: ER 14:01 → OVERFLOW 20:58
PROVIDERS: ADMIT Student in an Organized Health Care Education/Training Program; ATTEND Internal Medicine
DX: A46 Erysipelas (principal); K76.0 Fatty (change of) liver, not elsewhere classified; E11.9 Type 2 diabetes mellitus without complications; E66.01 Morbid (severe) obesity due to excess calories; E27.9 Disorder of adrenal gland, unspecified; B35.9 Dermatophytosis, unspecified; G40.909 Epilepsy, unspecified, not intractable, without status epilepticus; E88.810 Metabolic syndrome; F31.9 Bipolar disorder, unspecified; I10 Essential (primary) hypertension; F17.210 Nicotine dependence, cigarettes, uncomplicated; J45.909 Unspecified asthma, uncomplicated; K21.9 Gastro-esophageal reflux disease without esophagitis; R59.0 Localized enlarged lymph nodes; G89.29 Other chronic pain; M54.9 Dorsalgia, unspecified; G47.33 Obstructive sleep apnea (adult) (pediatric); F12.10 Cannabis abuse, uncomplicated; M79.7 Fibromyalgia; Z68.42 Body mass index [BMI] 45.0-49.9, adult
CPT/HCPCS: 36415; 74177; 80048; 80053; 80307; 81001; 82306; 82607; 82962; 83036; 83605; 83735; 84100; 84439; 84443; 84481; 85025; 85610; 85652; 85730; 86141; 86803; 87040; 87086; 87340; G0378; J1815; J2405; J2543

== ENCOUNTER 2024-12-28 09:28 | Inpatient (IN) | payer MEDICAID ==
[~2024-12-28] VITALS: Ht 177.8 cm; Wt 172.6 kg
[~2024-12-28 09:28] MED LIST changes: +AMOX500T92 PO; +ARIP1TAB63 PO; -ARIP20TA4 PO; -BACDST PO; -CEPH500C PO; -CLIN1CAP70 PO; +CLOT1CRE56 TOP; +IBUP-1455 PO; -IBUP-1456 PO; +INSLANTI SC; +INSLISPI SC; -KETO2CRE4 TOP; +LORA-622 PO; +VORT1TAB3 PO
[2024-12-28 09:48] VITALS: PULSE 81; RESP 22; O2SAT 99
--- NOTE | 2024-12-28 10:56 | DVH ---
CHEST RADIOGRAPH Indication: sob Technique: Single frontal view of the chest was obtained COMPARISON: XY CHEST PORTABLE on DOS: 04/20/23 FINDINGS: Lines and Tubes: None Lungs: Unchanged right upper lobe consolidation. Pleura: No effusion. No pneumothorax. Cardiomediastinal contours: Unremarkable Bones: Unremarkable IMPRESSION: Persistent right upper lobe consolidate restrepo appears unchanged since 04/20/2023.
[2024-12-28] MEDS: ONDANSETRON HCL 4 MG/2 ML VIAL IV ONE (11:00)
--- NOTE | 2024-12-28 11:00 | ED.PDOC ---
GI ASSESSMENT HPI Comments 44 y/o M, with PMHX of asthma, DM, GERD and HTN presents to the ED for CC of abdominal pain. Patient states, that he has been experiencing LUQ abdominal pain that started as lower lumbar pain since yesterday night (12/27/24). Patient relays, new symptoms of nausea and vomiting that worsen when eating as of this morning (12/28/24). Patient denies change in diet, fever, chills, sweats, melena, hematemesis, or diarrhea. No other symptoms or modifying factors at this time. Chief Complaint: Abdominal Pain Time Seen by MD: 10:25 Primary Care Provider: RIC Reviewed Notes: Nurses Notes, Medications, Allergies Allergies: Coded Allergies: Gabapentin (Verified Allergy, Unknown, 03/28/20) Pregabalin (Unverified Allergy, Unknown, 10/07/15) Home Meds Active Scripts Insulin Lispro (Human) (Humalog) 100 Unit/Ml Inj, 25 UNIT SC TID for 30 Days, #10 INJ Prov:JORGE CASTILLO 08/30/24 Insulin Glargine (Lantus) 100 Unit/Ml Inj, 65 UNIT SC DAILY for 30 Days, #10 INJ Prov:JORGE CASTILLO 08/30/24 Loratadine (Claritin) 10 Mg Tab, 1 TAB PO DAILY for 10 Days, #10 TAB 5 Refills Prov:JORGE CASTILLO 08/30/24 Ibuprofen Micronized (Ibuprofen) 800 Mg Tab, 800 MG PO BID for 14 Days, #28 TAB Prov:JORGE CASTILLO 08/30/24 Clotrimazole (Lotrimin) 1 Applic Ap, 1 APPLIC TOP BID for 7 Days, #14 APPLIC Prov:JORGE CASTILLO 08/30/24 Amoxicillin & Pot Clavulanate (Amoxicillin/Potassium Cla) 500 Mg Tab, 1 TAB PO BID for 7 Days, #14 TAB Prov:JORGE CASTILLO 08/30/24 Furosemide (Lasix) 40 Mg Tab, 40 MG PO DAILY, #30 TAB Prov:TIFFANIE SIMON MD 03/30/20 Probiotic Product (PROBIOTIC COMPLEX/ACIDOPH) Acidophi Cap, 1 CAP PO DAILY, #20 CAP Prov:TIFFANIE SIMON MD 03/30/20 Reported Medications Vortioxetine Hydrobromide (Trintellix) 20 Mg Tab, 1 TAB PO DAILY 08/29/24 Aripiprazole (Aripiprazole) 30 Mg Tab, 1 TAB PO DAILY 08/29/24 Hydrocortisone (Topical) (Hydrocortisone) 2.5 % Lot, 1 APPLIC TOP DAILY, APPLIC 03/30/20 Prazosin Hcl (Minipres) 1 Mg Cp, 2 MG PO DAILY, CAP 03/30/20 Trazodone HCl (Trazodone Hydrochloride) 50 Mg Tab, 50 MG PO DAILY, TAB 03/30/20 Oxycodone W/ Acetaminophen (Percocet 5/325MG) 1 Tab Tb, 1 TAB PO TID, #90 TAB 03/30/20 Cholecalciferol (VITAMIN D) 2,000 Unit Tab, 2000 UNIT PO DAILY, TAB 03/30/20 Metformin HCl (Metformin Hydrochloride) 500 Mg/5 Ml Lindsay, 500 MG PO DAILY, ML 03/30/20 Ergocalciferol (Vitamin D) 50,000 Unt Cap, 1 CAP PO QWEEKLY, #4 CAP 2 Refills 08/04/14 Albuterol Sulfate (VENTOLIN MDI) 90 Mcg Ih, 90 MCG IN 08/04/14 Aspirin (Aspirin) 325 Mg Tab, 1 TAB PO DAILY, #30 TAB 5 Refills 08/04/14 Niacin (Antihyperlipidemic) (Niaspan) 500 Mg Tab, PO, TAB 08/04/14 Citalopram Hydrobromide (CeleXA TABLET) 20 Mg Tb, PO DAILY, #30 TAB 5 Refills 08/04/14 Losartan Potassium (COZAAR TABLET) 50 Mg Tb, PO DAILY, #30 TAB 5 Refills 08/04/14 Hydrocodone-Acetaminophen (Dryden 5/325MG) 1 Tab Tb, 1 TAB PO TID, #90 TAB 08/04/14 Information Source: Patient Mode of Arrival: Ambulatory Timing: Hours Duration: Since onset Prehospital treatment: None Vomitus: Watery Stool: Normal Severity: Moderate Recent: None Recent Hx of: Diabetes Pain Location: LUQ Modifying Factors: Nothing Associated sign and symptoms: Nausea, Vomiting Past Medical History PAST MEDICAL HISTORY: Asthma, DM, GERD, HTN, Seizures Surgical History: Denies all surgeries Family History Family History: Reviewed,noncontributory to illness, Family hx of DM, Family hx of heart denton Family History (Other): Bipolar disorder Social History Smoker: Cigarettes Alcohol: Occasionally Drugs: Marijuana Lives In: Home Constitutional: denies: chills, diaphoresis, fatigue, fever, malaise, sweats, weakness, others EENTM: denies: blurred vision, double vision, ear bleeding, ear discharge, ear drainage, ear pain, ear ringing, eye pain, eye redness, hearing loss, mouth pain, mouth swelling, nasal discharge, nose bleeding, nose congestion, nose pain, photophobia, tearing, throat pain, throat swelling, voice changes, others Respiratory: denies: cough, hemoptysis, orthopnea, SOB at rest, shortness of breath, SOB with excertion, stridor, wheezing, others Gastrointestinal: reports: abdominal pain, nausea, vomiting; denies: abdomen distended, blood streaked bowels, constipated, diarrhea, dysphagia, difficulty swallowing, hematemesis, melena, poor appetite, poor fluid intake, rectal bleeding, rectal pain, others Genitourinary: denies: burning, dysuria, flank pain, frequency, hematuria, incontinence, penile discharge, penile sore, pain, testicle pain, testicle swelling, urgency, others Neurological: denies: dizziness, fainting, headache, left sided numbness, left sided weakness, numbness, paresthesia, pre-existing deficit, right sided numbness, right sided weakness, seizure, speech problems, tingling, tremors, we akness, others Musculoskeletal: reports: back pain; denies: gout, joint pain, joint swelling, muscle pain, muscle stiffness, neck pain, others Integumetry: denies: bruises, change in color, change in hair/nails, dryness, laceration, lesions, lumps, rash, wounds, others Allergic/Immunocompromised: denies: Difficulty Healing, Frequent Infections, Hives, Itching, others Hematologic/Lymphatic: denies: anemia, blood clots, easy bleeding, easy bruising, swollen glands, others Endocrine: denies: excessive hunger, excessive sweating, excessive thirst, excessive urination, flushing, intolerance to cold, intolerance to heat, unexplained weight gain, unexplained weight loss, others Psychiatric: denies: anxiety, bipolar disorder, depression, hopeless, panic disorder, schizophrenia, sleepless, suicidal, others All Other Systems: Reviewed and Negative Physical Exam General Appearance: Moderate Distress HEENT: Normal ENT Inspection, Pharynx Normal, TMs Normal Neck: Full Range of Motion, Non-Tender, Normal, Normal Inspection Respiratory: Chest Non-Tender, No Accessory Muscle Use, Other (Coarse breath sounds) Cardiovascular: No Edema, No JVD, No Murmur, No Gallop, Normal Peripheral Pulses, Regular Rate/Rhythm Breast Exam: Deferred Gastrointestinal: No Organomegaly, Non Tender, No Pulsatile Mass, Normal Bowel Sounds, Soft Genitalia: Deferred Pelvic: Deferred Rectal: Deferred Extremities: No pedal edema Musculoskeletal : Apperance: Normal Neurologic: Alert, No Motor Deficits, No Sensory Deficits Cerebellar Function: NOT DONE Reflexes: NOT DONE Skin: Normal Color Peripheral Pulses: 3+ Radial (R), 3+ Radial (L) Lymphatic: No Adenopathy Was a procedure done? Was a procedure done?: No GI differential Dx Differential Diagnosis: Constipation, Diverticular disease, Esophagitis, Gastritis/PUD, Gastroenteritis, Electrolyte Imbalance, Food Poisoning, Bacterial, Viral X-Ray, Labs, Meds, VS Vital Signs Date Time Temp Pulse Resp B/P (MAP) Pulse Ox O2 Delivery O2 Flow Rate FiO2 12/28/24 09:48 81 22 99 Room Air* 0 21 12/28/24 09:48 98.2 83 22 166/96 (119) 98 98.2 12/28/24 09:40 98.2 88 22 169/90 (116) 98 98.2 Lab Test 12/28/24 10:48 Range/Units White Blood Count 7.7 4.4-10.8 10^3/uL Red Blood Count 5.29 4.5-5.90 10^6/uL Hemoglobin 15.6 13.5-17.5 g/dL Hematocrit 46.7 41.0-53.0 % Mean Corpuscular Volume 88.4 80.0-100.0 fL Mean Corpuscular Hemoglobin 29.5 28.0-32.0 pg Mean Corpuscular Hemoglobin Concent 33.4 32.0-36.0 g/dL Red Cell Distribution Width 15.0 H 11.8-14.3 % Platelet Count 243 140-450 10^3/uL Mean Platelet Volume 9.0 6.9-10.8 fL Neutrophils (%) (Auto) 85.1 H 37.0-80.0 % Lymphocytes (%) (Auto) 11.0 10.0-50.0 % Monocytes (%) (Auto) 2.9 0.0-12.0 % Eosinophils (%) (Auto) 0.3 0.0-7.0 % Basophils (%) (Auto) 0.7 0.0-2.0 % Neutrophils # (Auto) 6.6 1.6-8.6 10 ^3/uL Lymphocytes # (Auto) 0.8 0.4-5.4 10 ^3/uL Monocytes # (Auto) 0.2 0-1.3 10 ^3/uL Eosinophils # (Auto) 0 0-0.8 10 ^3/uL Basophils # (Auto) 0.1 0-0.2 10 ^3/uL Nucleated Red Blood Cells 0.0 % Sodium Level 135 L 136-145 mmol/L Potassium Level 4.1 3.5-5.1 mmol/L Chloride Level 103 98-107 mmol/L Carbon Dioxide Level 26 20-31 mmol/L Anion Gap 6 5-15 Blood Urea Nitrogen 14 9-23 mg/dL Creatinine 0.69 L 0.700-1.30 mg/dL Glomerular Filtration Rate Calc 116 >90 mL/min BUN/Creatinine Ratio 20.3 H 10.0-20.0 Serum Glucose 296 H 74-106 mg/dL Calcium Level 9.6 8.7-10.4 mg/dL Troponin I High Sensitivity Pending Current Medications Medications (Trade) Dose Ordered Sig/Simone Route Start Time Stop Time Status Last Admin Ondansetron HCl (Zofran) 4 mg ONCE ONCE IV 12/28/24 10:45 12/28/24 10:46 DC 12/28/24 11:00 [place] [id number] Ph: [phone] DIAGNOSTIC IMAGING Diagnostic Imaging Report : [id number] Signed PATIENT: ALCON MARQUEZ ACCT: [id number] UNIT: [id number] : 1980 LOC: ER ROOM / BED: / AGE / SEX: 44 / M ADM STATUS: REG ER SERVICE 1032 ORDERING PHYSICIAN: RAYA CHURCHILL MD PROCEDURE(s): CXRP - CHEST PORTABLE REASON: sob ORDER NUMBER(s): [id number], ACCESSION NUMBER(s): [id number] CHEST RADIOGRAPH Indication: sob Technique: Single frontal view of the chest was obtained COMPARISON: XY CHEST PORTABLE on DOS: 04/20/23 FINDINGS: Lines and Tubes: None Lungs: Unchanged right upper lobe consolidation. Pleura: No effusion. No pneumothorax. Cardiomediastinal contours: Unremarkable Bones: Unremarkable IMPRESSION: Persistent right upper lobe consolidate restrepo appears unchanged since 04/20/2023. ATED BY: LEW ANDREW MD DICTATED DATE/TIME: 12/28/24 1053 SIGNED BY: LEW ANDREW MD SIGNED DATE/TIME: 12/28/24 1053 CC: Patient alert. Complaining of abdominal pain. For his nausea he was given Zofran. Vitals stable. He is having decreased breathing. Possible pneumonitis. His legs are swollen. Chronic condition. Echocardiogram. Possible CHF. There is mild redness of the bilateral lower extremity. Peripheral vascular disease. Hypertension treated with clonidine. Explained to the patient. Continue cardiac monitoring. 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 Electronically submitted by Fallon Thomson ([email or web address]). I personally scribed for RAYA CHURCHILL MD ([email or web address]) on 12/28/24 at 11:25. Electronically submitted by Fallon Thomson [email or web address]). RAYA CHURCHILL MD Dec 28, 2024 11:00
[2024-12-28 11:06] LABS: Basophils # (auto) 0.1 10 ^3/uL (0-0.2); Basophils % (auto) 0.7 % (0.0-2.0); Eosinophils # (auto) 0 10 ^3/uL (0-0.8); Eosinophils % (auto) 0.3 % (0.0-7.0); Hematocrit 46.7 % (41.0-53.0); Hemoglobin 15.6 g/dL (13.5-17.5); Lymphocytes # (auto) 0.8 10 ^3/uL (0.4-5.4); Mean Corpuscular Hemoglobin 29.5 pg (28.0-32.0); Mean Corpuscular Hgb Conc. 33.4 g/dL (32.0-36.0); Mean Corpuscular Volume 88.4 fL (80.0-100.0); Monocytes # (auto) 0.2 10 ^3/uL (0-1.3); Monocytes % (auto) 2.9 % (0.0-12.0); Neutrophils # (auto) 6.6 10 ^3/uL (1.6-8.6); Neutrophils % (auto) 85.1 % (37.0-80.0); Platelet Count (auto) 243 10^3/uL (140-450); Red Blood Cells 5.29 10^6/uL (4.5-5.90); White Blood Cell 7.7 10^3/uL (4.4-10.8)
[2024-12-28 11:16] LABS: Chloride 103 mmol/L (98-107); Potassium 4.1 mmol/L (3.5-5.1)
[2024-12-28 11:17] LABS: Anion Gap 6 (5-15); Calcium 9.6 mg/dL (8.7-10.4); Carbon Dioxide 26 mmol/L (20-31)
[2024-12-28 11:22] LABS: BUN/Creatinine Ratio 20.3 (10.0-20.0); Blood Urea Nitrogen 14 mg/dL (9-23)
[2024-12-28 11:24] LABS: Glucose 296 mg/dL (74-106); Sodium 135 mmol/L (136-145)
[2024-12-28] MEDS: methylPREDNISolone SOD SUCC 125 MG/2 ML VL IV ONE (11:51)
[2024-12-28] MEDS: cloNIDine HCL 0.1 MG TAB PO ONE (11:51)
[2024-12-28] MEDS: MORPHINE SULFATE 4 MG/ML SYR/VIAL IV ONE (11:52)
[2024-12-28] MEDS: FUROSEMIDE 20 MG/2 ML VIAL IV ONE (11:54)
[2024-12-28 15:19] LABS: Lipase 30 U/L (12-53)
[2024-12-28 15:21] LABS: Amylase 31 U/L (30-118)
[2024-12-28] MEDS ORDERED: DEXTROSE (50%) 50ML SYRG IV PRN (16:00)
[2024-12-28] MEDS ORDERED: ACETAMINOPHEN 325 MG TAB PO PRN (16:00)
--- NOTE | 2024-12-28 16:01 | DVHHP2 ---
History of Present Illness Reason for Visit: Abdominal pain History of Present Illness Pb Espinosa is a 44-year-old male with past medical history of hypertension, diabetes, asthma, back pain, GERD, morbid obesity, seizures, bipolar disorder, and bilateral carpal tunnel surgery who presents to the ED with left upper quadrant abdominal pain, nausea, vomiting, and back pain. Patient reports that the back pain has been progressively getting worse over the last few days. He states that the abdominal pain is 7/10 throbbing and constant. He also reports that he had coffee-ground emesis that started this morning. Patient also reports that he had a rash on his abdomen but has gotten better. Patient reports that he uses marijuana, smokes a half pack cigarettes per day, and quit drinking. Patient denies chest pain, shortness of breath, fever, chills, recent trauma or injury, recent sick contacts, diarrhea, lightheadedness, weakness, and dizziness. Cardiovascular: HTN Pulmonary: Asthma UNIT COORDINATOR: Seizure GI: GERD Psych: Bipolar Endocrine: Diabetes Past Medical History Chronic back pain Past Surgical History: Other (Bilateral carpal tunnel surgery) Family History: DM, Other (Diabetes and heart disease) Smoke: <1 pack per day ALCOHOL: none (Quit) Drugs: Marijuana Lives: with Family Domestic Violence: Neg Review of Systems Gastrointestinal: Nausea, Vomiting, Abdominal Pain, Other (Hematemesis) Musculoskeletal: back pain Skin: Rash, Other (Generalized erythematous bumps on abdomen) Allergies: Coded Allergies: Gabapentin (Verified Allergy, Unknown, 03/28/20) Pregabalin (Unverified Allergy, Unknown, 10/07/15) Medications Current Medications Medications Dose Ordered Sig/Simone Route Start Time Stop Time Status Last Admin Dose Admin Diagnostic Test (Pha) 1 strip Q6HR 12/28/24 18:00 UNV Insulin Human Regular Q6HR SC 12/28/24 18:00 UNV Dextrose 50 ml UD PRN IV 12/28/24 16:00 UNV Mupirocin 1 applic BID TOP 12/28/24 22:00 UNV Sodium Chloride 1,000 ml @ 100 mls/hr Q10H IV 12/28/24 16:00 UNV Acetaminophen/ Hydrocodone Bitart 1 tab Q4HP PRN PO 12/28/24 16:00 UNV Ondansetron HCl 4 mg Q4HP PRN IV 12/28/24 16:00 UNV Acetaminophen 650 mg Q6HP PRN PO 12/28/24 16:00 UNV Morphine Sulfate 2 mg Q4HPRN PRN IV 12/28/24 16:00 UNV Exam Vital Signs Vital Signs Date Time Temp Pulse Resp B/P (MAP) Pulse Ox O2 Delivery O2 Flow Rate FiO2 12/28/24 14:00 98.2 91 16 148/75 (99) 97 98.2 12/28/24 09:48 Room Air* 0 21 General Appearance: Alert, Oriented X3, Cooperative, No acute distress HEENT: Atraumatic, PERRLA, EOMI, Mucous membr. moist/pink Respiratory: Normal air movement Cardiovascular: Regular rate, Normal S1, Normal S2, No murmurs Abdominal: Soft Extremities: No cyanosis Neuro: Normal speech, Strength at 5/5 X4 ext, Normal tone, Sensation intact Psych/Mental Status: Mental status NL, Mood NL Labs/Xrays Labs Test 12/28/24 11:48 12/28/24 10:48 Range/Units Troponin I High Sensitivity 3 L </=54 ng/L White Blood Count 7.7 4.4-10.8 10^3/uL Red Blood Count 5.29 4.5-5.90 10^6/uL Hemoglobin 15.6 13.5-17.5 g/dL Hematocrit 46.7 41.0-53.0 % Mean Corpuscular Volume 88.4 80.0-100.0 fL Mean Corpuscular Hemoglobin 29.5 28.0-32.0 pg Mean Corpuscular Hemoglobin Concent 33.4 32.0-36.0 g/dL Red Cell Distribution Width 15.0 H 11.8-14.3 % Platelet Count 243 140-450 10^3/uL Mean Platelet Volume 9.0 6.9-10.8 fL Neutrophils (%) (Auto) 85.1 H 37.0-80.0 % Lymphocytes (%) (Auto) 11.0 10.0-50.0 % Monocytes (%) (Auto) 2.9 0.0-12.0 % Eosinophils (%) (Auto) 0.3 0.0-7.0 % Basophils (%) (Auto) 0.7 0.0-2.0 % Neutrophils # (Auto) 6.6 1.6-8.6 10 ^3/uL Lymphocytes # (Auto) 0.8 0.4-5.4 10 ^3/uL Monocytes # (Auto) 0.2 0-1.3 10 ^3/uL Eosinophils # (Auto) 0 0-0.8 10 ^3/uL Basophils # (Auto) 0.1 0-0.2 10 ^3/uL Nucleated Red Blood Cells 0.0 % Sodium Level 135 L 136-145 mmol/L Potassium Level 4.1 3.5-5.1 mmol/L Chloride Level 103 98-107 mmol/L Carbon Dioxide Level 26 20-31 mmol/L Anion Gap 6 5-15 Blood Urea Nitrogen 14 9-23 mg/dL Creatinine 0.69 L 0.700-1.30 mg/dL Glomerular Filtration Rate Calc 116 >90 mL/min BUN/Creatinine Ratio 20.3 H 10.0-20.0 Serum Glucose 296 H 74-106 mg/dL Calcium Level 9.6 8.7-10.4 mg/dL Amylase Level 31 30-118 U/L Lipase 30 12-53 U/L Procedure: CT CT AB PEL WO CON-NO ORAL OR IV 12/28/2024 03:06 PM Indication: abd pain Comparison Study: CT scan dated 08/28/2024 Technique: Axial images were obtained and reformatted in coronal and sagittal planes. All CT scans at this medical facility are performed using dose modulation techniques as appropriate to a performed exam including the fol lowing: Automated exposure control was utilized; adjustment of the MA and/or KV according to patient size; and use of iterative reconstruction technique. CT Dose: CTDI volume is 27 mGy. Dose-length product is 1600 mGy*cm FINDINGS: Lower Chest: Unremarkable. Hepatobiliary: Hepatomegaly and hepatic steatosis. Slightly nodular liver contour. No intrahepatic or extrahepatic ductal dilatation. No calcified gallstones. No gallbladder wall edema. Spleen: Mildly enlarged, 14.7 cm in length. Pancreas: Unremarkable. Adrenal Glands: Unremarkable. tract: The kidneys are normal in size bilaterally without hydronephrosis or nephrolithiasis. The urinary bladder is unremarkable. GI tract: The stomach is grossly normal in appearance. No evidence of small bowel obstruction. Scattered colonic diverticula are noted without evidence of diverticulitis. The appendix is normal. Lymphatics: No mesenteric, retroperitoneal or periportal lymphadenopathy. Mildly prominent bilateral inguinal lymph nodes noted measuring up to 2.3 x 1 cm. Vasculature: The abdominal aorta is normal in in caliber. Pelvic Organs: Unremarkable Bones/soft tissues: Skin thickening subcutaneous edema in the infraumbilical abdominal wall. Multilevel degenerative disc disease and facet arthropathy of the lumbar spine noted. Other: None. IMPRESSION: 1. No CT evidence of acute abnormality in the abdomen or pelvis. 2. Hepatomegaly, hepatic steatosis and cirrhotic liver morphology.Mild splenomegaly. 3. No ascites. 4. Lower abdominal wall cellulitis. 5. Mildly prominent likely reactive bilateral inguinal lymph nodes. CHEST RADIOGRAPH Indication: sob Technique: Single frontal view of the chest was obtained COMPARISON: XY CHEST PORTABLE on DOS: 04/20/23 FINDINGS: Lines and Tubes: None Lungs: Unchanged right upper lobe consolidation. Pleura: No effusion. No pneumothorax. Cardiomediastinal contours: Unremarkable Bones: Unremarkable IMPRESSION: Persistent right upper lobe consolidate restrepo appears unchanged since 04/20/2023. Assessment/Plan Assessment/Plan Assessment Intractable abdominal pain with nausea and vomiting Intractable back pain Morbid obesity Hematemesis Rule out GI bleed Lower abdominal wall cellulitis Hypertensive urgency Bilateral lower extremity erythema and scabs likely cellulitis Diabetes type 2 uncontrolled History of asthma History of seizures History of GERD History of bipolar disease Plan Admit to med surge Diet Diuretics given ED Steroids given in ED Pain management Antiemetics Antihypertensives Chest x-ray UA Troponin negative x2 Hemoglobin A1c ISS and Accu-Cheks UA CT abdomen and pelvis Amylase Lipase Stool occult blood Mupirocin SCDs Wound culture Wound consult Ultrasound bilateral lower extremity venous IV antibiotics-Zosyn + clindamycin Home meds reconciled Discussed plan of care with patient nurse Counseled patient on lifestyle modifications, diet, and exercise Plan discussed with: Patient My Orders Orders - JAZ ESTEVES REVISING CLERK Procedure Category Date Status Time Ct Ab Pel Wo Con-No CT 12/28/24 Taken Oral Or Iv 14:41 Urinalysis LAB 12/28/24 Logged 14:46 Glucose Blood PHA 12/28/24 Logged (Accu-Chek Comfort 18:00 Insulin R (Human) PHA 12/28/24 Logged (Insulin R) 18:00 Dextrose 50% Syringe PHA 12/28/24 Logged 16:00 Hemoglobin A1c LAB 12/28/24 Logged 15:49 Mupirocin 2% Ointment PHA 12/28/24 Logged (Bactroban 2% Oint 22:00 * Gi Dvh Appeals Examiner CONS 12/28/24 Transmitted 15:49 Sodium Chloride 0.9% PHA 12/28/24 Logged 16:00 Admit ADMIT 12/28/24 Transmitted 15:49 Allergies SELWYN 12/28/24 In Process 15:49 Code Status CODE 12/28/24 Transmitted 15:49 Hydrocodone-Acet PHA 12/28/24 Logged 5/325mg Tab ([place] 16:00 Ondansetron Hcl PHA 12/28/24 Logged (Zofran) 16:00 Complete Blood Count LAB 12/29/24 Verified 04:00 Comprehensive LAB 12/29/24 Verified Metabolic Panel 04:00 Npo (Nothing By DIET 12/28/24 Transmitted Mouth) Diet Dinner Acetaminophen Tablet PHA 12/28/24 Logged (Tylenol Tablet) 16:00 Morphine Sulfate PHA 12/28/24 Logged Injection 16:00 Stool Occult Blood LAB 12/28/24 Logged 15:54 Zosyn Extended PHA 12/28/24 Verified Infusion 22:00 Zosyn Extended PHA 12/28/24 Verified Infusion 16:00 Date of Service: Dec 28, 2024 Billing Provider: JAZ ESTEVES Common Visit Codes: [id number] INP/OBS CARE (HIGH) JAZ ESTEVES Dec 28, 2024 16:01
[2024-12-28] MEDS: SODIUM CHLORIDE 0.9% 1,000 ML IV SCH (16:30)
[2024-12-28] MEDS: PIPERACILLIN-TAZOB 3.375GM 100 ML IV ONE (16:30)
[2024-12-28 16:42] LABS: Urine Bacteria None Seen /hpf (None Seen)
--- NOTE | 2024-12-28 16:48 | DVH ---
Procedure: CT CT AB PEL WO CON-NO ORAL OR IV 12/28/2024 03:06 PM Indication: abd pain Comparison Study: CT scan dated 08/28/2024 Technique: Axial images were obtained and reformatted in coronal and sagittal planes. All CT scans at this medical facility are performed using dose modulation techniques as appropriate to a performed e xam including the following: Automated exposure control was utilized; adjustment of the MA and/or KV according to patient size; and use of iterative reconstruction technique. CT Dose: CTDI volume is 27 mGy. Dose-length product is 1600 mGy*cm FINDINGS: Lower Chest: Unremarkable. Hepatobiliary: Hepatomegaly and hepatic steatosis. Slightly nodular liver contour. No intrahepatic o r extrahepatic ductal dilatation. No calcified gallstones. No gallbladder wall edema. Spleen: Mildly enlarged, 14.7 cm in length. Pancreas: Unremarkable. Adrenal Glands: Unremarkable. tract: The kidneys are normal in size bilaterally without hydronephrosis or nephrolithiasis. The u rinary bladder is unremarkable. GI tract: The stomach is grossly normal in appearance. No evidence of small bowel obstruction. Scatte red colonic diverticula are noted without evidence of diverticulitis. The appendix is normal. Lymphatics: No mesenteric, retroperitoneal or periportal lymphadenopathy. Mildly prominent bilateral inguinal lymph nodes noted measuring up to 2.3 x 1 cm. Vasculature: The abdominal aorta is normal in in caliber. Pelvic Organs: Unremarkable Bones/soft tissues: Skin thickening subcutaneous edema in the infraumbilical abdominal wall. Multile joanne degenerative disc disease and facet arthropathy of the lumbar spine noted. Other: None. IMPRESSION: 1. No CT evidence of acute abnormality in the abdomen or pelvis. 2. Hepatomegaly, hepatic steatosis and cirrhotic liver morphology.Mild splenomegaly. 3. No ascites. 4. Lower abdominal wall cellulitis. 5. Mildly prominent likely reactive bilateral inguinal lymph nodes.
[2024-12-28] MEDS: MORPHINE SULFATE INJ 2 MG/ml SYRG IV PRN (16:49)
[2024-12-28] MEDS: ONDANSETRON HCL 4 MG/2 ML VIAL IV PRN (16:50)
[2024-12-28 17:11] LABS: Urine Blood TRACE /uL (Negative); Urine Clarity Clear (Clear); Urine Color Light-Yellow (Yellow); Urine Protein, UAD TRACE (Negative); Urine Specific Gravity 1.031 (1.001-1.035); Urine Squamous Epithelial Cell FEW /hpf (<5); Urine Urobilinogen Normal (Negative); Urine WBC < 1 /HPF (0-3)
[2024-12-28] MEDS ORDERED: CELE1CAP29 PO (17:32)
[2024-12-28] MEDS ORDERED: TOPI200T43 PO (17:32)
[2024-12-28] MEDS ORDERED: CALC0.0021 TOP (17:32)
[2024-12-28] MEDS ORDERED: LEVE250T78 PO (17:32)
[2024-12-28 17:38] VITALS: O2SAT 98
[2024-12-28] MEDS ORDERED: LOSA-535 PO (17:58)
[2024-12-28] MEDS: ACCU-CHEK COMFORT CURVE STRIP VI SCH (18:21)
[2024-12-28] MEDS: InsuLIN REG 1unit/0.01ml Soln (100units/ml) SC SCH (18:28)
[2024-12-28] MEDS: CLINDAMYCIN 600MG IV 50 ML IV ONE (18:36)
[2024-12-28 20:00] VITALS: PULSE 94; RESP 20; O2SAT 94
--- NOTE | 2024-12-28 20:30 | DVH ---
BILATERAL LOWER EXTREMITY VENOUS DOPPLER ULTRASOUND CLINICAL HISTORY: r/o dvt TECHNIQUE: Grayscale ultrasound with compression, color Doppler flow imaging with pulsed duplex sonog leigh of the bilateral lower extremity deep venous system from the common femoral veins through the p opliteal veins is performed. COMPARISON: US BILAT LOWER DVT on DOS: 04/12/23 FINDINGS: Right common femoral vein: Negative. Right greater saphenous vein: Negative. Right deep femoral vein: Negative. Right femoral vein: Negative. Right popliteal vein: Negative. Left common femoral vein: Negative. Left greater saphenous vein: Negative. Left deep femoral vein: Negative. Left femoral vein: Negative. Left popliteal vein: Negative. Other: Visualized bilateral popliteal trifurcation and posterior tibial veins demonstrate color flow. IMPRESSION: No sonographic evidence of deep venous thrombosis in either lower extremity at this time.
[2024-12-28] MEDS: HYDROcodone-ACET 5/325MG TAB PO PRN (20:37)
[2024-12-28 21:00] VITALS: BP 120/80; PULSE 94; RESP 18; TEMP 98.6; O2SAT 94
[2024-12-28] MEDS: MUPIROCIN 2% OINT 15gm or 22gm TOP SCH (21:39)
[2024-12-28] MEDS: CLINDAMYCIN 600MG IV 50 ML IV SCH (21:39)
[2024-12-28] MEDS: PIPERACILLIN-TAZOB 3.375GM 100 ML IV SCH (21:39)
[2024-12-29 05:00] VITALS: BP 121/80; PULSE 90; RESP 20; TEMP 98.4; O2SAT 98
[2024-12-29 06:52] LABS: Basophils # (auto) 0.1 10 ^3/uL (0-0.2); Basophils % (auto) 0.6 % (0.0-2.0); Eosinophils # (auto) 0 10 ^3/uL (0-0.8); Eosinophils % (auto) 0.1 % (0.0-7.0); Hematocrit 43.6 % (41.0-53.0); Hemoglobin 14.3 g/dL (13.5-17.5); Lymphocytes # (auto) 1.8 10 ^3/uL (0.4-5.4); Lymphocytes % (auto) 15.9 % (10.0-50.0); Mean Corpuscular Hgb Conc. 32.9 g/dL (32.0-36.0); Monocytes # (auto) 1.1 10 ^3/uL (0-1.3); Neutrophils # (auto) 8.2 10 ^3/uL (1.6-8.6); Neutrophils % (auto) 73.4 % (37.0-80.0); Platelet Count (auto) 259 10^3/uL (140-450); Red Blood Cells 4.95 10^6/uL (4.5-5.90); White Blood Cell 11.1 10^3/uL (4.4-10.8)
[2024-12-29 07:14] LABS: Alanine Aminotransferase 20 U/L (7-40); Albumin 4.2 g/dL (3.2-4.8); Alkaline Phosphatase 67 U/L (46-116); Anion Gap 7 (5-15); BUN/Creatinine Ratio 28.1 (10.0-20.0); Bilirubin, Total 0.6 mg/dL (0.2-1.0); Blood Urea Nitrogen 18 mg/dL (9-23); Calcium 9.6 mg/dL (8.7-10.4); Carbon Dioxide 27 mmol/L (20-31); Chloride 104 mmol/L (98-107); Potassium 3.8 mmol/L (3.5-5.1); Sodium 138 mmol/L (136-145); Total Protein 7.8 g/dL (5.7-8.2)
[2024-12-29 07:15] LABS: Aspartate Aminotransferase 12 U/L (13-40); Glucose 225 mg/dL (74-106)
[2024-12-29 08:00] VITALS: PULSE 94; RESP 19; O2SAT 98
[2024-12-29] MEDS: HYDROmorphone HCL 2 MG/ML VL/or syr IV ONE (08:34)
[2024-12-29] MEDS: FUROSEMIDE 40 MG TAB PO SCH (08:37)
[2024-12-29] MEDS: traZODone HCL 50 MG TAB PO SCH (08:38)
[2024-12-29] MEDS: ASPirin 325 MG TAB PO SCH (08:39)
[2024-12-29] MEDS: CHOLECALCIFEROL (VITD3) 1,000UNIT=25mCg TAB PO SCH (08:39)
[2024-12-29] MEDS: LOSARTAN POTASSIUM 50 MG TAB PO SCH (08:40)
[2024-12-29] MEDS: PRAZOSIN HCL 1 MG CAP PO SCH (08:41)
[2024-12-29] MEDS: ARIPIPRAZOLE 30 MG PO SCH (08:45)
[2024-12-29] MEDS: VORTIOXETINE HYDROBROMIDE 20 MG PO SCH (08:45)
[2024-12-29 09:00] VITALS: BP 143/88; PULSE 87; RESP 21; TEMP 98.1; O2SAT 92
[2024-12-29] MEDS: PANTOPRAZOLE 40 MG/10 ML VIAL INJ IV ONE (10:41)
[2024-12-29] MEDS ORDERED: INSULIN LANTUS (GLARGINE) 1 /0.01ml (100units/ml) SC ONE (11:15)
[2024-12-29] MEDS: BACLOFEN 10 MG TAB PO SCH (11:57)
[2024-12-29] MEDS: INSULIN LANTUS (GLARGINE) 1 /0.01ml (100units/ml) SC ONE (12:05)
[2024-12-29] MEDS: HYDROmorphone HCL 2 MG/ML VL/or syr IV SCH (12:10)
[2024-12-29 13:00] VITALS: BP 110/64; PULSE 91; RESP 19; TEMP 97.6; O2SAT 98
--- NOTE | 2024-12-29 14:36 | DVHPNRES ---
Progress Note Date Seen: Dec 29, 2024 Resident Creating Document: FIORDALIZA ROY RESIDENT Medical Necessity Reason Pt with a Central, PICC or Fol: No Objective vital signs Vital Sign Date Time Temp Pulse Resp B/P (MAP) Pulse Ox O2 Delivery O2 Flow Rate FiO2 12/29/24 13:00 97.6 91 19 110/64 (79) 98 97.6 12/28/24 20:00 Room Air* 0 21 Total Intake and Output 12/28/24 12/28/24 12/29/24 15:00 23:00 07:00 Intake Total 0 ml Balance 0 ml medications Current Medications Medications Dose Ordered Sig/Simone Route Start Time Stop Time Status Last Admin Dose Admin Diagnostic Test (Pha) 1 strip Q6HR 12/28/24 18:00 12/29/24 12:00 1 STRIP Dextrose 50 ml UD PRN IV 12/28/24 16:00 Mupirocin 1 applic BID TOP 12/28/24 22:00 12/28/24 21:39 1 APPLIC Acetaminophen/ Hydrocodone Bitart 1 tab Q4HP PRN PO 12/28/24 16:00 12/28/24 20:37 1 TAB Ondansetron HCl 4 mg Q4HP PRN IV 12/28/24 16:00 12/29/24 08:31 4 MG Acetaminophen 650 mg Q6HP PRN PO 12/28/24 16:00 Furosemide 40 mg DAILY PO 12/29/24 10:00 12/29/24 08:37 40 MG Losartan Potassium 50 mg DAILY PO 12/29/24 10:00 12/29/24 08:40 50 MG Prazosin HCl 2 mg DAILY PO 12/29/24 10:00 12/29/24 08:41 2 MG Trazodone HCl 50 mg DAILY PO 12/29/24 10:00 Patient Own Medication 1 tab DAILY PO 12/29/24 10:00 Aspirin 325 mg DAILY PO 12/29/24 10:00 12/29/24 08:39 325 MG Patient Own Medication 1 tab DAILY PO 12/29/24 10:00 Hydromorphone HCl 1 mg Q6HR IV 12/29/24 12:00 12/29/24 12:10 1 MG Pantoprazole Sodium 40 mg DAILY IV 12/30/24 10:00 Topiramate 200 mg Q12HR PO 12/29/24 22:00 Baclofen 10 mg Q8HR PO 12/29/24 12:00 12/29/24 11:57 10 MG Sucralfate 1 gm TID@0600,1130,2200 PO 12/29/24 22:00 UNV laboratory and microbiology Laboratory Tests 12/29/24 06:13 Test 12/29/24 06:13 Range/Units Serum Glucose 225 H 74-106 mg/dL My Orders My Orders Orders - FIORDALIZA ROY Procedure Category Date Status Time Clear Liq Diet DIET 12/29/24 Transmitted Lunch Hydromorphone PHA 12/29/24 In Process Injection (Dilaudid 12:00 Pantoprazole PHA 12/30/24 In Process (Protonix) 10:00 Topiramate (Topamax) PHA 12/29/24 In Process 22:00 Baclofen Tablet PHA 12/29/24 In Process (Liorisal Tablet) 12:00 Cleanse Wound With SELWYN 12/29/24 In Process Mild Soap A 10:45 Sucralfate Susp PHA 12/29/24 Logged (Carafate Susp) 22:00 Sucralfate Susp PHA 12/29/24 Logged (Carafate Susp) 13:15 FIORDALIZA ROY RESIDENT Dec 29, 2024 14:36
[2024-12-29] MEDS: SUCRALFATE 1 GM/10 ML ORAL SUSP PO ONE (15:09)
[2024-12-29] MEDS: LORazepam 0.5 MG TAB PO ONE (15:09)
[2024-12-29 17:00] VITALS: BP 102/53; PULSE 94; RESP 20; TEMP 97.9; O2SAT 94
[2024-12-29] MEDS ORDERED: DEXTROSE (50%) 50ML SYRG IV PRN (18:30)
--- NOTE | 2024-12-29 18:47 | DVHPNRES ---
Progress Note Date Seen: Dec 29, 2024 Resident Creating Document: FIORDALIZA ROY RESIDENT Medical Necessity Reason Pt with a Central, PICC or Fol: No Subjective Review of Systems Patient 44-year-old male with a past medical history of degenerative disc disease, disc prolapse, hypertension, type 2 diabetes mellitus, GERD, bipolar disorder, seizure disorder presented to the ED with a chief complaint of intractable vomiting with epigastric abdominal pain and left lower back pain. Patient was then at baseline he has lower back pain for which she takes Percocet q.i.d. but yesterday morning he started to have sudden onset left lower back pain which was 10/10 on intensity, sharp, constant and patient was not able to move. Patient also had associated multiple episodes of vomiting with 1 episode of vomit which contained coffee-ground stuff, had associated epigastric abdominal pain. He reports that since the past few weeks he has been having early satiety, symptoms of GERD. At home patient takes Prilosec. Patient was recently admitted in the hospital for abdominal wall cellulitis. Past medical history: As per HPI Past surgical history: Bilateral carpal tunnel surgery Social history: Patient is most half a pack to 1 pack of cigarettes per day since the last 30 years, smokes marijuana, denies other drug use. He quit alcohol many years ago Home medications: Topiramate 200 mg b.i.d., aripiprazole 30 mg daily, vortioxetine 20 mg daily, insulin Lantus 65 units q.a.m., insulin lispro 25 U tid, losartan 100 mg daily, Percocet 10 q.i.d. Review of systems Patient seen and examined at bedside Reports lower back pain with the left side and in the midline which radiates down to the buttock Denies nausea, vomiting, chest pain, shortness of breath, diarrhea or constipation Objective vital signs Vital Sign Date Time Temp Pulse Resp B/P (MAP) Pulse Ox O2 Delivery O2 Flow Rate FiO2 12/29/24 13:00 97.6 91 19 110/64 (79) 98 97.6 12/29/24 08:00 Room Air* 0 21 Total Intake and Output 12/28/24 12/28/24 12/29/24 15:00 23:00 07:00 Intake Total 0 ml Balance 0 ml medications Current Medications Medications Dose Ordered Sig/Simone Route Start Time Stop Time Status Last Admin Dose Admin Diagnostic Test (Pha) 1 strip Q6HR 12/28/24 18:00 12/29/24 12:00 1 STRIP Dextrose 50 ml UD PRN IV 12/28/24 16:00 Mupirocin 1 applic BID TOP 12/28/24 22:00 12/28/24 21:39 1 APPLIC Acetaminophen/ Hydrocodone Bitart 1 tab Q4HP PRN PO 12/28/24 16:00 12/29/24 17:13 1 TAB Ondansetron HCl 4 mg Q4HP PRN IV 12/28/24 16:00 12/29/24 08:31 4 MG Acetaminophen 650 mg Q6HP PRN PO 12/28/24 16:00 Furosemide 40 mg DAILY PO 12/29/24 10:00 12/29/24 08:37 40 MG Losartan Potassium 50 mg DAILY PO 12/29/24 10:00 12/29/24 08:40 50 MG Prazosin HCl 2 mg DAILY PO 12/29/24 10:00 12/29/24 08:41 2 MG Trazodone HCl 50 mg DAILY PO 12/29/24 10:00 Patient Own Medication 1 tab DAILY PO 12/29/24 10:00 Aspirin 325 mg DAILY PO 12/29/24 10:00 12/29/24 08:39 325 MG Patient Own Medication 1 tab DAILY PO 12/29/24 10:00 Hydromorphone HCl 1 mg Q6HR IV 12/29/24 12:00 12/29/24 12:10 1 MG Pantoprazole Sodium 40 mg DAILY IV 12/30/24 10:00 Topiramate 200 mg Q12HR PO 12/29/24 22:00 Baclofen 10 mg Q8HR PO 12/29/24 12:00 12/29/24 11:57 10 MG Sucralfate 1 gm TID@0600,1130,2200 PO 12/29/24 22:00 Examination Constitutional patient was alert and oriented to time, place and person, is moderately obese BMI 54 and appears to be in acute distress because of the back pain Gen - no pallor, no icterus, no cyanosis, no clubbing, no LAD, no edema . Skin - Patients skin is warm and dry. Bilateral lower extremity venous stasis, lesions on bilateral elbows and on the abdomen likely psoriasis HEENT - normocephalic, atraumatic, moist mucous membranes. Neck - full ROM, no LAD, no JVD Pulmonary - B/L vesicular breath sounds. no crackles , no wheezing, no stridor. cardiovascular - faint S1-S2 likely due to body habitus.no murmurs heard. GI - obese abdomen, palpation in the right upper quadrant and in the epigastrium. no hepatospleenomegaly. Bowel sounds normoactive Neurological - Bilateral upper extremity strength 5/5, bilateral lower extremity strength 5/5, no facial droop, normal speech, no tremor, no sensory deficiets. laboratory and microbiology Laboratory Tests 12/29/24 06:13 Test 12/29/24 06:13 Range/Units Serum Glucose 225 H 74-106 mg/dL Problem List/Assessment/Plan Problem List/Assessment/Plan Assessment # lower back pain likely muscle spasm # intractable abdominal pain with nausea and vomiting # pancreatitis ruled out # uncontrolled type 2 diabetes mellitus with hyperglycemia # ?Coffee-ground emesis # lower abdominal wall cellulitis # bilateral lower extremity venous stasis # history of seizure disorder # history of bipolar disorder CT abdomen pelvis without contrast IMPRESSION: 1. No CT evidence of acute abnormality in the abdomen or pelvis. 2. Hepatomegaly, hepatic steatosis and cirrhotic liver morphology.Mild splenomegaly. 3. No ascites. 4. Lower abdominal wall cellulitis. 5. Mildly prominent likely reactive bilateral inguinal lymph nodes. Plan - baclofen for spasm, Dilaudid for pain control - Protonix IV and sucralfate - insulin Lantus 45 units and aggressive insulin sliding scale - H&H stable - IV antibiotics for abdominal wall cellulitis - continued on medication topiramate, Abilify, vortioxetine - continued on losartan and prazosin - Goals of care discussed with the patient for over 25 mins. Full code Plan discussed with Dr. Mccormack Plan discussed with: Patient My Orders My Orders Orders - FIORDALIZA ROY RESIDENT Procedure Category Date Status Time Clear Liq Diet DIET 12/29/24 Transmitted Lunch Hydromorphone PHA 12/29/24 In Process Injection (Dilaudid 12:00 Pantoprazole PHA 12/30/24 In Process (Protonix) 10:00 Topiramate (Topamax) PHA 12/29/24 In Process 22:00 Baclofen Tablet PHA 12/29/24 In Process (Liorisal Tablet) 12:00 Cleanse Wound With SELWYN 12/29/24 In Process Mild Soap A 10:45 Sucralfate Susp PHA 12/29/24 In Process (Carafate Susp) 22:00 Date of Service: Dec 29, 2024 Billing Provider: JOSTIN MCCORMACK MD Common Visit Codes: [id number] INP/OBS CARE(HIGH) FIORDALIZA ROY RESIDENT Dec 29, 2024 18:47 JOSTIN MCCORMACK MD Dec 30, 2024 20:11
[2024-12-29] MEDS: SUCRALFATE 1 GM/10 ML ORAL SUSP PO SCH (21:09)
[2024-12-29] MEDS: cefTRIAXone 1GM/50ML D5W 50 ML IV SCH (21:09)
[2024-12-29] MEDS: HYDROcodone-ACET 10/325MG TAB PO ONE (21:09)
[2024-12-29] MEDS: ACCU-CHEK COMFORT CURVE STRIP VI SCH (21:12)
[2024-12-29] MEDS: InsuLIN REG 1unit/0.01ml Soln (100units/ml) SC SCH (21:13)
[2024-12-29] MEDS: TOPIRAMATE 100 MG TAB PO SCH (22:00)
[2024-12-30 01:00] VITALS: BP 141/93; PULSE 96; RESP 19; TEMP 97.8; O2SAT 91
[2024-12-30 05:00] VITALS: BP 168/91; PULSE 99; RESP 19; TEMP 97.5; O2SAT 97
[2024-12-30 06:36] LABS: Basophils # (auto) 0.1 10 ^3/uL (0-0.2); Eosinophils # (auto) 0.2 10 ^3/uL (0-0.8); Eosinophils % (auto) 1.9 % (0.0-7.0); Hematocrit 43.2 % (41.0-53.0); Hemoglobin 14.4 g/dL (13.5-17.5); Lymphocytes # (auto) 2.7 10 ^3/uL (0.4-5.4); Lymphocytes % (auto) 30.4 % (10.0-50.0); Mean Corpuscular Hemoglobin 29.7 pg (28.0-32.0); Mean Corpuscular Hgb Conc. 33.5 g/dL (32.0-36.0); Mean Corpuscular Volume 88.8 fL (80.0-100.0); Monocytes # (auto) 0.7 10 ^3/uL (0-1.3); Monocytes % (auto) 7.6 % (0.0-12.0); Neutrophils # (auto) 5.3 10 ^3/uL (1.6-8.6); Neutrophils % (auto) 59.1 % (37.0-80.0); Platelet Count (auto) 235 10^3/uL (140-450); Red Blood Cells 4.86 10^6/uL (4.5-5.90); White Blood Cell 8.9 10^3/uL (4.4-10.8)
[2024-12-30 06:49] LABS: Chloride 102 mmol/L (98-107); Potassium 3.7 mmol/L (3.5-5.1)
[2024-12-30 06:50] LABS: Anion Gap 6 (5-15); Carbon Dioxide 27 mmol/L (20-31)
[2024-12-30 06:51] LABS: Calcium 8.9 mg/dL (8.7-10.4)
[2024-12-30 06:55] LABS: BUN/Creatinine Ratio 26.6 (10.0-20.0); Blood Urea Nitrogen 17 mg/dL (9-23)
[2024-12-30 06:56] LABS: Glucose 150 mg/dL (74-106); Sodium 135 mmol/L (136-145)
[2024-12-30 09:00] VITALS: BP 127/77; PULSE 94; RESP 20; TEMP 98.2; O2SAT 95
[2024-12-30] MEDS: ASPirin 81 mg TAB PO SCH (09:17)
[2024-12-30] MEDS: PANTOPRAZOLE 40 MG/10 ML VIAL INJ IV SCH (09:19)
[2024-12-30] MEDS ORDERED: BACL10TA PO (10:54)
[2024-12-30] MEDS ORDERED: AUG875T PO ×2 (10:54→11:57)
[2024-12-30] MEDS ORDERED: BACL20TA PO (11:57)
[2024-12-30 13:00] VITALS: BP 118/60; PULSE 98; RESP 20; TEMP 98.2; O2SAT 93
[2024-12-30 15:00] VITALS: BP 131/82; PULSE 63; RESP 20; TEMP 98.2; O2SAT 97
--- NOTE | 2024-12-30 22:31 | DVHDSRES ---
Discharge Summary Date of Admission Resident Creating Document: FIORDALIZA ROY RESIDENT Dec 28, 2024 at 15:49 Date of Discharge: Dec 30, 2024 Admitting Diagnosis Intractable abdominal pain with nausea and vomiting Intractable back pain Morbid obesity Hematemesis Rule out GI bleed Lower abdominal wall cellulitis Hypertensive urgency Bilateral lower extremity erythema and scabs likely cellulitis Diabetes type 2 uncontrolled History of asthma History of seizures History of GERD History of bipolar disease Wounds: Lower abdominal wall cellulitis Labs/Diagnostic Data: Laboratory Results Test 12/30/24 05:57 12/30/24 05:00 12/29/24 06:13 12/28/24 15:30 POC Glucose 178 mg/dl (70-106) White Blood Count 8.9 10^3/uL (4.4-10.8) Red Blood Count 4.86 10^6/uL (4.5-5.90) Hemoglobin 14.4 g/dL (13.5-17.5) Hematocrit 43.2 % (41.0-53.0) Mean Corpuscular Volume 88.8 fL (80.0-100.0) Mean Corpuscular Hemoglobin 29.7 pg (28.0-32.0) Mean Corpuscular Hemoglobin Concent 33.5 g/dL (32.0-36.0) Red Cell Distribution Width 15.0 % (11.8-14.3) Platelet Count 235 10^3/uL (140-450) Mean Platelet Volume 8.7 fL (6.9-10.8) Neutrophils (%) (Auto) 59.1 % (37.0-80.0) Lymphocytes (%) (Auto) 30.4 % (10.0-50.0) Monocytes (%) (Auto) 7.6 % (0.0-12.0) Eosinophils (%) (Auto) 1.9 % (0.0-7.0) Basophils (%) (Auto) 1.0 % (0.0-2.0) Neutrophils # (Auto) 5.3 10 ^3/uL (1.6-8.6) Lymphocytes # (Auto) 2.7 10 ^3/uL (0.4-5.4) Monocytes # (Auto) 0.7 10 ^3/uL (0-1.3) Eosinophils # (Auto) 0.2 10 ^3/uL (0-0.8) Basophils # (Auto) 0.1 10 ^3/uL (0-0.2) Nucleated Red Blood Cells 0.0 % Sodium Level 135 mmol/L (136-145) Potassium Level 3.7 mmol/L (3.5-5.1) Chloride Level 102 mmol/L (98-107) Carbon Dioxide Level 27 mmol/L (20-31) Anion Gap 6 (5-15) Blood Urea Nitrogen 17 mg/dL (9-23) Creatinine 0.64 mg/dL (0.700-1.30) Glomerular Filtration Rate Calc 119 mL/min (>90) BUN/Creatinine Ratio 26.6 (10.0-20.0) Serum Glucose 150 mg/dL (74-106) Calcium Level 8.9 mg/dL (8.7-10.4) Total Bilirubin 0.6 mg/dL (0.2-1.0) Aspartate Amino Transferase (AST) 12 U/L (13-40) Alanine Aminotransferase (ALT) 20 U/L (7-40) Alkaline Phosphatase 67 U/L (46-116) Total Protein 7.8 g/dL (5.7-8.2) Albumin 4.2 g/dL (3.2-4.8) Urine Color Light-yellow (Yellow) Urine Clarity Clear (Clear) Urine pH 7.0 (5.0-9.0) Urine Specific [place] 1.031 (1.001-1.035) Urine Protein Trace (Negative) Urine Ketones 1+ (Negative) Urine Blood Trace /uL (Negative) Urine Nitrite Negative (Negative) Urine Bilirubin Negative (Negative) Urine Urobilinogen Normal mg/dL (Negative) Urine Leukocyte Esterase Negative /uL (Negative) Urine RBC <1 /hpf (0 - 3) Urine Microscopic WBC < 1 /HPF (0-3) Urine Squamous Epithelial Cells Few /hpf (<5) Urine Bacteria None seen /hpf (None Seen) Urine Glucose 4+ mg/dL (Normal) Test 12/28/24 11:48 12/28/24 10:48 Troponin I High Sensitivity 3 ng/L (</=54) Hemoglobin A1c 9.2 % A1C (<5.7) Amylase Level 31 U/L (30-118) Lipase 30 U/L (12-53) Other Laboratory Tests 12/30/24 05:00 Brief Hx & Hospital Course: HPI Patient 44-year-old male with a past medical history of degenerative disc disease, disc prolapse, hypertension, type 2 diabetes mellitus, GERD, bipolar disorder, seizure disorder presented to the ED with a chief complaint of intractable vomiting with epigastric abdominal pain and left lower back pain. Patient was then at baseline he has lower back pain for which she takes Percocet q.i.d. but yesterday morning he started to have sudden onset left lower back pain which was 10/10 on intensity, sharp, constant and patient was not able to move. Patient also had associated multiple episodes of vomiting with 1 episode of vomit which contained coffee-ground stuff, had associated epigastric abdominal pain. He reports that since the past few weeks he has been having early satiety, symptoms of GERD. At home patient takes Prilosec. Patient was recently admitted in the hospital for abdominal wall cellulitis. Past medical history: As per HPI Past surgical history: Bilateral carpal tunnel surgery Social history: Patient is most half a pack to 1 pack of cigarettes per day since the last 30 years, smokes marijuana, denies other drug use. He quit alcohol many years ago Home medications: Topiramate 200 mg b.i.d., aripiprazole 30 mg daily, vortioxetine 20 mg daily, insulin Lantus 65 units q.a.m., insulin lispro 25 U tid, losartan 100 mg daily, Percocet 10 q.i.d. Brief Hospital course Patient with a history of chronic lower back pain and degenerative disc disease came to the hospital with a worsening lower back pain. On examination patient did not have any sensory or motor deficits and CT abdomen pelvis without contrast did not show any acute lumbar spine fracture or dislocation. Suspecting muscle spasm patient was started on baclofen and given IV pain control with Dilaudid which showed improved the patient's symptoms. Abdominal CT also showed abdominal wall cellulitis for which the patient was started on IV antibiotics. Patient's back pain improved and was discharged in stable condition to home. Discharge plan medications: Baclofen 10 mg t.i.d. for 14 days Continue on pain medication as per pain management Augmentin 875 mg b.i.d. for 5 days Follow up with the PCP in 1 week Consults/Reason for consult none Operations or Procedures CT abdomen pelvis without contrast FINDINGS: Lower Chest: Unremarkable. Hepatobiliary: Hepatomegaly and hepatic steatosis. Slightly nodular liver contour. No intrahepatic or extrahepatic ductal dilatation. No calcified gallstones. No gallbladder wall edema. Spleen: Mildly enlarged, 14.7 cm in length. Pancreas: Unremarkable. Adrenal Glands: Unremarkable. tract: The kidneys are normal in size bilaterally without hydronephrosis or nephrolithiasis. The urinary bladder is unremarkable. GI tract: The stomach is grossly normal in appearance. No evidence of small bowel obstruction. Scattered colonic diverticula are noted without evidence of diverticulitis. The appendix is normal. Lymphatics: No mesenteric, retroperitoneal or periportal lymphadenopathy. Mildly prominent bilateral inguinal lymph nodes noted measuring up to 2.3 x 1 cm. Vasculature: The abdominal aorta is normal in in caliber. Pelvic Organs: Unremarkable Bones/soft tissues: Skin thickening subcutaneous edema in the infraumbilical abdominal wall. Multilevel degenerative disc disease and facet arthropathy of the lumbar spine noted. Other: None. IMPRESSION: 1. No CT evidence of acute abnormality in the abdomen or pelvis. 2. Hepatomegaly, hepatic steatosis and cirrhotic liver morphology.Mild splenomegaly. 3. No ascites. 4. Lower abdominal wall cellulitis. 5. Mildly prominent likely reactive bilateral inguinal lymph nodes. Condition at Discharge: Good Final Diagnosis/Problems List # lower back pain likely muscle spasm # intractable abdominal pain with nausea and vomiting # Acute gastroenteritis # pancreatitis ruled out # uncontrolled type 2 diabetes mellitus with hyperglycemia # ?Coffee-ground emesis # lower abdominal wall cellulitis # bilateral lower extremity venous stasis # history of seizure disorder # history of bipolar disorder Discharge Disposition: Home Discharge Instruct/Medications Diet: Regular Activity: No Restrictions, As Tolerated Follow Up/Referral: Follow up with the PCP in one week Medications: as per EMR Discharge Statement: "Patient was advised to return to the ER or call 911 if any headaches, dizziness, shortness of breath, chest pain, abdominal pain, bleeding, fevers, or worsening of medical condition. Patient was counseled about treatment plan, medications, possible side effects, patientverbalized understanding. All questions were answered to the best of my ability. This discharge took greater then 30 minutes in planning, reviewing documentation, counseling the patient, and discussing with other team members." ASSESSMENT ASSESSMENT Assessment # lower back pain likely muscle spasm # intractable abdominal pain with nausea and vomiting # Acute gastroenteritis # pancreatitis ruled out # uncontrolled type 2 diabetes mellitus with hyperglycemia # ?Coffee-ground emesis # lower abdominal wall cellulitis # bilateral lower extremity venous stasis # history of seizure disorder # history of bipolar disorder Date of Service: Dec 30, 2024 Billing Provider: JOSTIN MCCORMACK MD Common Visit Codes: [id number]/OBS DISCH DAY >30min FIORDALIZA ROY RESIDENT Dec 30, 2024 22:31 JOSTIN MCCORMACK MD Jan 01, 2025 10:13
== END 2024-12-30 15:30 | disposition home or self-care (01) | DRG 347 ==
LOC: ER 09:28 → OVERFLOW 15:49 → WEST WING 17:26
PROVIDERS: ADMIT Student in an Organized Health Care Education/Training Program; ATTEND Student in an Organized Health Care Education/Training Program
DX: M62.830 Muscle spasm of back (principal); K92.0 Hematemesis; E11.51 Type 2 diabetes mellitus with diabetic peripheral angiopathy without gangrene; L03.311 Cellulitis of abdominal wall; Z68.43 Body mass index [BMI] 50.0-59.9, adult; E11.65 Type 2 diabetes mellitus with hyperglycemia; E66.01 Morbid (severe) obesity due to excess calories; I16.0 Hypertensive urgency; F31.9 Bipolar disorder, unspecified; J45.909 Unspecified asthma, uncomplicated; I11.0 Hypertensive heart disease with heart failure; G40.909 Epilepsy, unspecified, not intractable, without status epilepticus; F17.210 Nicotine dependence, cigarettes, uncomplicated; K21.9 Gastro-esophageal reflux disease without esophagitis; Z83.3 Family history of diabetes mellitus; Z79.4 Long term (current) use of insulin; Z79.51 Long term (current) use of inhaled steroids; Z79.82 Long term (current) use of aspirin; Z88.8 Allergy status to other drugs, medicaments and biological substances; Z79.84 Long term (current) use of oral hypoglycemic drugs; A09 Infectious gastroenteritis and colitis, unspecified
CPT/HCPCS: 36415; 71045; 74176; 80048; 80053; 81001; 82150; 82962; 83036; 83690; 84484; 85025; 93970; 96365; 96375; G0378; J1815; J2405; J2470; J2543; J3490

== ENCOUNTER 2025-07-26 08:04 | Emergency (ER) | payer MEDICAID ==
[~2025-07-26] VITALS: Ht 177.8 cm; Wt 144.5 kg
[~2025-07-26 08:04] MED LIST changes: -AMOX500T92 PO; -ASPI325T6 PO; +AUG875T PO; +BACL20TA PO; +CALC0.0021 TOP; +CELE1CAP29 PO; -CHOL20009 PO; -CITA20TA3 PO; -CLOT1CRE56 TOP; -ERGO1CAP6 PO; -HYDR-4833 PO; -IBUP-1455 PO; +LEVE250T78 PO; -LOS50T PO; +LOSA-535 PO; -METF500S3 PO; -NIAC-10 PO; -PERCOT PO; -PROBCAP9 PO; +TOPI200T43 PO; -TRAZ-181 PO
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
[2025-07-26] MEDS: KETOROLAC TROMETH 30 MG/ML 1ML VIAL IM ONE (09:33)
[2025-07-26 10:47] VITALS: TEMP 97.8
[2025-07-26 10:55] LABS: Hematocrit 45.8 % (41.0-53.0); Hemoglobin 15.3 g/dL (13.5-17.5); Mean Corpuscular Hemoglobin 28.9 pg (28.0-32.0); Mean Corpuscular Volume 86.3 fL (80.0-100.0); Nucleated Red Blood Cells % 0.1 %
[2025-07-26 11:08] LABS: Alanine Aminotransferase 17 U/L (7-40); Albumin 4.0 g/dL (3.2-4.8); Alkaline Phosphatase 70 U/L (46-116); Anion Gap 10 (5-15); BUN/Creatinine Ratio 16.4 (10.0-20.0); Blood Urea Nitrogen 10 mg/dL (9-23); Calcium 9.2 mg/dL (8.7-10.4); Carbon Dioxide 24 mmol/L (20-31); Chloride 103 mmol/L (98-107); Glucose 103 mg/dL (74-106); Potassium 4.6 mmol/L (3.5-5.1); Sodium 137 mmol/L (136-145); Total Protein 8.0 g/dL (5.7-8.2)
[2025-07-26 11:09] LABS: Bilirubin, Total 0.5 mg/dL (0.2-1.0)
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
[2025-07-26 11:56] VITALS: BP 120/72; PULSE 74; RESP 16; O2SAT 95
[2025-07-26] MEDS: LOSARTAN POTASSIUM 50 MG TAB PO ONE (11:59)
== END 2025-07-26 12:27 | disposition left against medical advice (07) ==
LOC: ER 08:04
DX: S29.9XXA Unspecified injury of thorax, initial encounter (principal); F17.210 Nicotine dependence, cigarettes, uncomplicated; F10.90 Alcohol use, unspecified, uncomplicated; F19.90 Other psychoactive substance use, unspecified, uncomplicated; J45.909 Unspecified asthma, uncomplicated; I10 Essential (primary) hypertension; G89.29 Other chronic pain; E11.9 Type 2 diabetes mellitus without complications; E66.9 Obesity, unspecified; Z79.899 Other long term (current) drug therapy; Z79.1 Long term (current) use of non-steroidal anti-inflammatories (NSAID); Z79.4 Long term (current) use of insulin; Z88.8 Allergy status to other drugs, medicaments and biological substances; Z68.42 Body mass index [BMI] 45.0-49.9, adult; V89.2XXA Person injured in unspecified motor-vehicle accident, traffic, initial encounter; Y93.01 Activity, walking, marching and hiking; Y92.89 Other specified places as the place of occurrence of the external cause; Y99.8 Other external cause status; Y90.9 Presence of alcohol in blood, level not specified
CPT/HCPCS: 36415; 71046; 71275; 72100; 80053; 85025; 96372; 99285; J1885; Q9967

== ENCOUNTER 2025-07-26 19:05 | Emergency (ER) | payer MEDICAID ==
[~2025-07-26] VITALS: Ht 177.8 cm; Wt 147.0 kg
[2025-07-26 19:05] VITALS: BP 108/80; RESP 20; TEMP 98; O2SAT 95
--- NOTE | 2025-07-26 19:17 | ECG ---
[facility] Test Date: 2025-07-26 Test Time: 19:09:08 Pat Name: ALCON MARQUEZ Department: [facility] ED Patient ID: [facility]-[id number] Room: Gender: M [employer] Manager: DESTINI : 1980 Requested By: ERVIN HAMMOND Order Number: [id number] Reading MD: Dwight Rios Measurements Intervals [place] Rate: 83 P: 64 MI: 185 QRS: 11 QRSD: 90 T: 54 QT: 369 QTc: 434 Interpretive Statements Sinus rhythm Low voltage, precordial leads ST elev, probable normal early repol pattern Electronically Signed On 07-28-2025 18:45:48 PDT by Dwight Rios Please click the below link to view image of tracing.
[2025-07-26 19:31] VITALS: PULSE 83
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
== END 2025-07-26 22:23 | disposition left against medical advice (07) ==
LOC: EDBD 19:05 → ER 19:05
DX: S29.9XXA Unspecified injury of thorax, initial encounter (principal); I10 Essential (primary) hypertension; E11.9 Type 2 diabetes mellitus without complications; F17.210 Nicotine dependence, cigarettes, uncomplicated; F10.90 Alcohol use, unspecified, uncomplicated; F12.90 Cannabis use, unspecified, uncomplicated; J45.909 Unspecified asthma, uncomplicated; G89.29 Other chronic pain; F31.9 Bipolar disorder, unspecified; E66.9 Obesity, unspecified; Z79.899 Other long term (current) drug therapy; Z79.4 Long term (current) use of insulin; Z79.1 Long term (current) use of non-steroidal anti-inflammatories (NSAID); Z88.8 Allergy status to other drugs, medicaments and biological substances; Z68.42 Body mass index [BMI] 45.0-49.9, adult; V89.2XXA Person injured in unspecified motor-vehicle accident, traffic, initial encounter; Y93.89 Activity, other specified; Y92.488 Other paved roadways as the place of occurrence of the external cause; Y99.8 Other external cause status
CPT/HCPCS: 93005

== ENCOUNTER 2025-07-27 06:48 | Emergency (ER) | payer MEDICAID ==
[~2025-07-27] VITALS: Ht 177.8 cm; Wt 148.1 kg
--- NOTE | 2025-07-27 07:04 | ECG ---
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
[2025-07-27] MEDS ORDERED: LORazepam 2MG/ML-1ML VIAL IV ONE (07:15)
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
--- NOTE | 2025-07-27 07:50 | ECG ---
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
[2025-07-27] MEDS: HYDROcodone-ACET 10/325MG TAB PO ONE (09:38)
[2025-07-27] MEDS: LORazepam 2MG/ML-1ML VIAL IM ONE (09:38)
[2025-07-27 10:36] VITALS: PULSE 100; RESP 20; O2SAT 98
[2025-07-27 13:12] VITALS: BP 137/87; PULSE 105; RESP 18; TEMP 98; O2SAT 97
== END 2025-07-27 15:17 | disposition short-term general hospital (02) ==
LOC: ER 06:48
DX: R07.89 Other chest pain (principal); F12.90 Cannabis use, unspecified, uncomplicated; F10.90 Alcohol use, unspecified, uncomplicated; E11.9 Type 2 diabetes mellitus without complications; F17.210 Nicotine dependence, cigarettes, uncomplicated; E66.9 Obesity, unspecified; F31.9 Bipolar disorder, unspecified; G89.29 Other chronic pain; I10 Essential (primary) hypertension; J45.909 Unspecified asthma, uncomplicated; Z79.899 Other long term (current) drug therapy; Z79.4 Long term (current) use of insulin; Z79.1 Long term (current) use of non-steroidal anti-inflammatories (NSAID); Z88.8 Allergy status to other drugs, medicaments and biological substances
CPT/HCPCS: 36415; 84484; 93005; 96372; 99285; J2060

== ENCOUNTER 2025-09-24 07:29 | Emergency (ER) | payer MEDICAID ==
[~2025-09-24] VITALS: Ht 175.3 cm; Wt 150.6 kg
--- NOTE | 2025-09-24 08:22 | ED.PDOC ---
History of Present Illness HPI Comments The patient with a history of chronic pain, previously managed with Percocet and now on Suboxone, presents for a pain medication refill. The patient reports being between pain management providers and is awaiting an appointment with a new pain specialist, which may take a couple of months. The patient has three days of Suboxone remaining and is experiencing significant pain localized to the lower back, described as arthritis and sciatica. The patient reports sciatica episodes lasting about six days at a time, which are managed with stretching. The patient is currently taking a low dose of Suboxone, self-adjusting to a third of a dose at a time to extend supply. No family history, allergies, or additional social history were provided. Chief Complaint: Body Pain Time Seen by MD: 08:00 Primary Care Provider: RIC Reviewed Notes: Nurses Notes, Medications, Allergies Allergies: Coded Allergies: Gabapentin (Verified Allergy, Unknown, 03/28/20) Pregabalin (Unverified Allergy, Unknown, 10/07/15) Home Meds Active Scripts Amoxicillin & Pot Clavulanate (AUGMENTIN TABLET) 875 Mg Tb, 875 MG PO BID for 7 Days, #14 TAB 0 Refills Prov:FIORDALIZA ROY 12/30/24 Baclofen (Baclofen) 20 Mg Tab, 10 MG PO TID for 10 Days, #15 TAB 0 Refills Prov:FIORDALIZA ROY 12/30/24 Insulin Lispro (Human) (Humalog) 100 Unit/Ml Inj, 25 UNIT SC TID for 30 Days, #10 INJ Prov:JORGE CASTILLO 08/30/24 Insulin Glargine (Lantus) 100 Unit/Ml Inj, 65 UNIT SC DAILY for 30 Days, #10 INJ Prov:JORGE CASTILLO 08/30/24 Loratadine (Claritin) 10 Mg Tab, 1 TAB PO DAILY for 10 Days, #10 TAB 5 Refills Prov:JORGE CASTILLO 08/30/24 Furosemide (Lasix) 40 Mg Tab, 40 MG PO DAILY, #30 TAB Prov:TIFFANIE SIMON MD 03/30/20 Reported Medications Losartan Potassium (Losartan Potassium) 100 Mg Tab, 1 TAB PO DAILY, #30 TAB 5 Refills 12/28/24 Topiramate (Topiramate) 200 Mg Tab, 1 TAB PO BID 12/28/24 Levetiracetam (Levetiracetam) 250 Mg Tab, 1 PO DAILY 12/28/24 Calcipotriene (CALCIPOTRIENE) 0.005 % Cre, 1 APPLIC TOP QAM 12/28/24 Celecoxib (Celecoxib) 200 Mg Cap, 1 CAP PO DAILY 12/28/24 Vortioxetine Hydrobromide (Trintellix) 20 Mg Tab, 1 TAB PO DAILY 08/29/24 Aripiprazole (Aripiprazole) 30 Mg Tab, 1 TAB PO DAILY 08/29/24 Hydrocortisone (Topical) (Hydrocortisone) 2.5 % Lot, 1 APPLIC TOP DAILY, APPLIC 03/30/20 Prazosin Hcl (Minipres) 1 Mg Cp, 2 MG PO DAILY, CAP 03/30/20 Albuterol Sulfate (VENTOLIN MDI) 90 Mcg Ih, 90 MCG IN 08/04/14 Information Source: Patient Mode of Arrival: Ambulatory Severity: Moderate Timing: Came on: Gradually Duration: Since onset Prehospital treatment: None Past Medical History PAST MEDICAL HISTORY: Asthma, DM, GERD, HTN, Seizures Surgical History: Denies all surgeries Family History Family History: Reviewed,noncontributory to illness, Family hx of DM, Family hx of heart denton Family History (Other): Bipolar disorder Social History Smoker: Cigarettes, Greater Than 1 Pack/Day Alcohol: Occasionally Drugs: Marijuana Lives In: Home Constitutional: denies: chills, diaphoresis, fatigue, fever, malaise, sweats, weakness, others EENTM: denies: blurred vision, double vision, ear bleeding, ear discharge, ear drainage, ear pain, ear ringing, eye pain, eye redness, hearing loss, mouth pain, mouth swelling, nasal discharge, nose bleeding, nose congestion, nose pain, photophobia, tearing, throat pain, throat swelling, voice changes, others Respiratory: denies: cough, hemoptysis, orthopnea, SOB at rest, shortness of breath, SOB with excertion, stridor, wheezing, others Cardiovascular: denies: chest pain, dizzy spells, diaphoresis, Dyspnea on exertion, edema, irregular heart beat, left arm pain, lightheadedness, palpitations, PND, syncope, others Gastrointestinal: denies: abdomen distended, abdominal pain, blood streaked bowels, constipated, diarrhea, dysphagia, difficulty swallowing, hematemesis, melena, nausea, poor appetite, poor fluid intake, rectal bleeding, rectal pain, vomiting, others Genitourinary: denies: burning, dysuria, flank pain, frequency, hematuria, incontinence, penile discharge, penile sore, pain, testicle pain, testicle swelling, urgency, others Neurological: denies: dizziness, fainting, headache, left sided numbness, left sided weakness, numbness, paresthesia, pre-existing deficit, right sided numbness, right sided weakness, seizure, speech problems, tingling, tremors, weakness, others Musculoskeletal: denies: back pain, gout, joint pain, joint swelling, muscle pain, muscle stiffness, neck pain, others Integumetry: denies: bruises, change in color, change in hair/nails, dryness, laceration, lesions, lumps, rash, wounds, others Allergic/Immunocompromised: denies: Difficulty Healing, Frequent Infections, Hives, Itching, others Hematologic/Lymphatic: denies: anemia, blood clots, easy bleeding, easy bruising, swollen glands, others Endocrine: denies: excessive hunger, excessive sweating, excessive thirst, excessive urination, flushing, intolerance to cold, intolerance to heat, unexplained weight gain, unexplained weight loss, others Psychiatric: denies: anxiety, bipolar disorder, depression, hopeless, panic disorder, schizophrenia, sleepless, suicidal, others All Other Systems: Reviewed and Negative Physical Exam General Appearance: No Apparent Distress, Normal HEENT: Normal ENT Inspection, Pharynx Normal, TMs Normal Neck: Full Range of Motion, Non-Tender, Normal, Normal Inspection Respiratory: Chest Non-Tender, Lungs Clear, No Accessory Muscle Use, No Respiratory Distress, Normal Breath Sounds Cardiovascular: No Edema, No JVD, No Murmur, No Gallop, Normal Peripheral Pulses, Regular Rate/Rhythm Breast Exam: Deferred Gastrointestinal: No Organomegaly, Non Tender, No Pulsatile Mass, Normal Bowel Sounds, Soft Genitalia: Deferred Pelvic: Deferred Rectal: Deferred Extremities: No calf tenderness, Normal capillary refill, Normal inspection, Normal range of motion, Non-tender, No pedal edema Musculoskeletal : Apperance: Normal Neurologic: Alert, container maker II-XII nml as Tested, No Motor Deficits, Normal Affect, Normal Mood, No Sensory Deficits Cerebellar Function: Normal Reflexes: Normal Skin: Dry, Normal Color, Warm Lymphatic: No Adenopathy Was a procedure done? Was a procedure done?: No Differential Dx Considerations may include: other X-Ray, Labs, Meds, VS Vital Signs Date Time Temp Pulse Resp B/P (MAP) Pulse Ox O2 Delivery O2 Flow Rate FiO2 09/24/25 08:33 101 16 97 Room Air 09/24/25 08:33 98.0 101 16 148/94 (112) 97 98.0 09/24/25 07:36 Room Air* 0 21 09/24/25 07:33 98.1 107 12 150/96 96 98.1 X-Ray, Labs, Meds, VS Comment Patient arrives alert and oriented, ABC's intact, afebrile, vital signs stable, saturating well in room air History of opioid use disorder, currently managed with Suboxone. The patient is at risk of withdrawal due to impending medication shortage and is awaiting connection with a new pain management provider. The patient is aware of the risks of opioid therapy and is engaged in ongoing care. - Confirmed current Suboxone regimen and prior provider history - I discussed the current limitations in refilling Suboxone and the necessity of established pain management follow-up. The patient will follow up as needed for pain management and medication continuity. Additional MDM Review of External, Non-ED records: External records reviewed. Discussion with independent historian (EMS, family) history obtained from the patient/parents (if applicable) at bedside Chronic conditions affecting care: None Social determinants of health affecting care: None Consideration of admission (observation or admission): I considered escalation of care to admission for this patient, however given the reassuring workup, the patient is safe for outpatient management. Time of 1ST Reevaluation: 08:30 Reevaluation 1ST: Unchanged Patient Education/Counseling: Diagnosis, Treatment, Prognosis Family Education/Counseling: No Family Present SEPSIS Sepsis Screen Date sepsis recognized/suspect: Sep 24, 2025 Time Sepsis recognized/suspect: 07 Recent Procedure: No On Antibiotic Therapy: No Respiratory Rate >20: No Heart Rate >90: Yes Temp<36 C (96.8 F) or >38.3 C: No SBP <90 or MAP <65 mmHG: No New Acute Mental Status Change: No Is the patient on CPAP, BIPAP,: No Vital Signs Date Time Temp Pulse Resp B/P (MAP) Pulse Ox O2 Delivery O2 Flow Rate FiO2 09/24/25 08:33 101 16 97 Room Air 09/24/25 08:33 98.0 101 16 148/94 (112) 97 98.0 09/24/25 07:36 Room Air* 0 21 09/24/25 07:33 98.1 107 12 150/96 96 98.1 Departure 1 Departure Time of Disposition: 08:24 Impression: Primary Impression: Medication refill Disposition: HOME / SELF CARE / HOMELESS Condition: Stable Discharged With: Self Critical Care Note Critical Care Time?: No Stability Stability form required: No Heart Score Heart Score: Heart Score Response (Comments) Value History N/A 0 EKG N/A 0 Age N/A 0 Risk Factors N/A 0 Troponin N/A 0 Total 0 I personally scribed for JOVAN SANCHEZ NP ([email or web address]) on 09/24/25 at 08:22. Electronically submitted by Andrade Ravi ([email or web address]). JOVAN SANCHEZ NP Sep 24, 2025 08:22
--- NOTE | 2025-09-24 08:23 | ED.PDOC ---
Back pain HPI Chief Complaint: Body Pain Time Seen by MD: 07:36 Primary Care Provider: RIC Allergies: Coded Allergies: Gabapentin (Verified Allergy, Unknown, 03/28/20) Pregabalin (Unverified Allergy, Unknown, 10/07/15) Home Meds Active Scripts Amoxicillin & Pot Clavulanate (AUGMENTIN TABLET) 875 Mg Tb, 875 MG PO BID for 7 Days, #14 TAB 0 Refills Prov:FIORDALIZA ROY 12/30/24 Baclofen (Baclofen) 20 Mg Tab, 10 MG PO TID for 10 Days, #15 TAB 0 Refills Prov:FIORDALIZA ROY 12/30/24 Insulin Lispro (Human) (Humalog) 100 Unit/Ml Inj, 25 UNIT SC TID for 30 Days, #10 INJ Prov:JORGE CASTILLO 08/30/24 Insulin Glargine (Lantus) 100 Unit/Ml Inj, 65 UNIT SC DAILY for 30 Days, #10 INJ Prov:JORGE CASTILLO 08/30/24 Loratadine (Claritin) 10 Mg Tab, 1 TAB PO DAILY for 10 Days, #10 TAB 5 Refills Prov:JORGE CASTILLO 08/30/24 Furosemide (Lasix) 40 Mg Tab, 40 MG PO DAILY, #30 TAB Prov:TIFFANIE SIMON MD 03/30/20 Reported Medications Losartan Potassium (Losartan Potassium) 100 Mg Tab, 1 TAB PO DAILY, #30 TAB 5 Refills 12/28/24 Topiramate (Topiramate) 200 Mg Tab, 1 TAB PO BID 12/28/24 Levetiracetam (Levetiracetam) 250 Mg Tab, 1 PO DAILY 12/28/24 Calcipotriene (CALCIPOTRIENE) 0.005 % Cre, 1 APPLIC TOP QAM 12/28/24 Celecoxib (Celecoxib) 200 Mg Cap, 1 CAP PO DAILY 12/28/24 Vortioxetine Hydrobromide (Trintellix) 20 Mg Tab, 1 TAB PO DAILY 08/29/24 Aripiprazole (Aripiprazole) 30 Mg Tab, 1 TAB PO DAILY 08/29/24 Hydrocortisone (Topical) (Hydrocortisone) 2.5 % Lot, 1 APPLIC TOP DAILY, APPLIC 03/30/20 Prazosin Hcl (Minipres) 1 Mg Cp, 2 MG PO DAILY, CAP 03/30/20 Albuterol Sulfate (VENTOLIN MDI) 90 Mcg Ih, 90 MCG IN 08/04/14 Mode of Arrival: Ambulatory Past Medical History PAST MEDICAL HISTORY: Asthma, DM, GERD, HTN, Seizures Surgical History: Denies all surgeries Family History Family History: Reviewed,noncontributory to illness, Family hx of DM, Family hx of heart denton Family History (Other): Bipolar disorder Social History Smoker: Cigarettes, Greater Than 1 Pack/Day Alcohol: Occasionally Drugs: Marijuana Lives In: Home X-Ray, Labs, Meds, VS Vital Signs Date Time Temp Pulse Resp B/P (MAP) Pulse Ox O2 Delivery O2 Flow Rate FiO2 09/24/25 08:33 101 16 97 Room Air 09/24/25 08:33 98.0 101 16 148/94 (112) 97 98.0 09/24/25 07:36 Room Air* 0 21 09/24/25 07:33 98.1 107 12 150/96 96 98.1 X-Ray, Labs, Meds, VS Comment ALCON MARQUEZ Sold: 07/25/2025 Filled: 07/20/2025 BUPRENORPHINE HYDROCHLORIDE, NALOXONE HYDROCH Refill 0 of 0 2-0.5 MG FILM Days: 30 Qty: 60 Daily: N/A Total: N/A ESTER PALMA ELEAZAR: [id number] [facility] Pharmacy #: [id number] Serialized Rx: NOT REPORTED Pharmacy Rx: [id number] SEPSIS Sepsis Screen Date sepsis recognized/suspect: Sep 24, 2025 Time Sepsis recognized/suspect: 07 Recent Procedure: No On Antibiotic Therapy: No Respiratory Rate >20: No Heart Rate >90: Yes Temp<36 C (96.8 F) or >38.3 C: No SBP <90 or MAP <65 mmHG: No New Acute Mental Status Change: No Is the patient on CPAP, BIPAP,: No Vital Signs Date Time Temp Pulse Resp B/P (MAP) Pulse Ox O2 Delivery O2 Flow Rate FiO2 09/24/25 08:33 101 16 97 Room Air 09/24/25 08:33 98.0 101 16 148/94 (112) 97 98.0 09/24/25 07:36 Room Air* 0 21 09/24/25 07:33 98.1 107 12 150/96 96 98.1 Departure 1 Departure Time of Disposition: 08:22 Disposition: 01 HOME / SELF CARE / HOMELESS Condition: Stable Discharged With: Self I personally scribed for JOVAN SANCHEZ NP ([email or web address]) on 09/24/25 at 09:11. Electronically submitted by Andrade Ravi ([email or web address]). JOVAN SANCHEZ NP Sep 24, 2025 08:22
[2025-09-24 08:33] VITALS: BP 148/94; PULSE 101; RESP 16; TEMP 98; O2SAT 97
== END 2025-09-24 08:35 | disposition home or self-care (01) ==
LOC: ER 07:29
DX: M54.50 Low back pain, unspecified (principal); I10 Essential (primary) hypertension; E11.9 Type 2 diabetes mellitus without complications; F17.210 Nicotine dependence, cigarettes, uncomplicated; J45.909 Unspecified asthma, uncomplicated; M19.90 Unspecified osteoarthritis, unspecified site; Z76.0 Encounter for issue of repeat prescription; Z79.899 Other long term (current) drug therapy; Z88.8 Allergy status to other drugs, medicaments and biological substances